=== PATIENT | male | born 1950 | race Caucasian/White ===

== ENCOUNTER 2017-04-03 02:13 | Inpatient (IN) | payer MEDICARE, OTHER ==
[~2017-04-03] VITALS: Ht 185.4 cm; Wt 117.5 kg
[~2017-04-03 02:13] MED LIST: CLOZAPINE25 MG PO; COZAAR50 MG ORAL; CYMBALTA30 MG ORAL; DEPAKOTE500 MG PO; DOCUSATE SODIU250 MG ORAL; DUONEB 0.5-3(2.53 ML HHN; GLUCOPHAGE1000 MG ORAL; LEVAQUIN750 MG ORAL; LOPRESSOR25 M1 ORAL; MEDROL4 MG ORAL; MOM30 ML ORAL; PEPCID20 MG ORAL; RISPERDAL2 MG ORAL; SIMVASTATIN20 MG ORAL
[2017-04-03] MEDS ORDERED: Morphine Sulfate 2mg/ml Inj IVP PRN (06:30)
[2017-04-03] MEDS ORDERED: Nitroglycerin Subl 0.4mg tab SL PRN (06:30)
[2017-04-03] MEDS ORDERED: Promethazine/Codeine 5ml UD ORAL PRN (06:30)
[2017-04-03] MEDS ORDERED: LORazepam Inj 2mg/ml 1ml IV PRN (06:30)
[2017-04-03 08:00] VITALS: BP 129/86
[2017-04-03] MEDS: Theophylline ER 100mg ORAL SCH ×2 (08:23→21:00)
[2017-04-03] MEDS: NovoLOG Insulin Flexpen SUBQ SCH ×4 (08:38→21:05)
--- NOTE | 2017-04-03 08:44 | General Progress Note ---
Progress Note Progress Note pt seen and examined full note will be dictated shortly JESSICA PALACIOS Apr 03, 2017 08:44
--- NOTE | 2017-04-03 08:47 | Cardiology Progress Note ---
Assessment/Plan Assessment/Plan The patient is seen and examined, full consult note will be dictated. Objective Last 24 Hour Vital Signs Date Time Temp Pulse Resp B/P (MAP) Pulse Ox O2 Delivery O2 Flow Rate FiO2 04/03/17 08:00 97.2 104 18 129/86 94 04/03/17 04:00 99 MARIAH STAPLETON Apr 03, 2017 08:47
[2017-04-03] MEDS ORDERED: DULoxetine 30mg cap ORAL SCH (09:00)
[2017-04-03] MEDS: Albuterol/Ipratropium 3ml neb HHN PRN ×2 (09:43→16:20)
--- NOTE | 2017-04-03 09:48 | Diagnostic Imaging Report ---
Indication: Shortness of breath Technique: One view of the chest Comparison: 09/18/2015 Findings: Body habitus limits evaluation. Heart is borderline enlarged. The lungs and pleural spaces are grossly clear. Impression: Borderline cardiomegaly No definite acute process
[2017-04-03] MEDS: Solu-MEDROL 125mg Inj IV SCH ×3 (11:42→23:33)
[2017-04-03 11:59] LABS: HEMOGLOBIN 13.8 G/DL (14.2-18.0); MEAN CORPUSCULAR VOLUME 87 FL (80-99); PLATELET COUNT 339 K/UL (150-450); RED CELL DISTRIBUTION WIDTH 12.1 % (11.6-14.8); WHITE BLOOD COUNT 8.5 K/UL (4.8-10.8)
[2017-04-03 12:00] VITALS: BP 144/66
[2017-04-03 12:17] LABS: PHOSPHORUS 3.4 MG/DL (2.5-4.9)
--- NOTE | 2017-04-03 15:07 | Consultation ---
History of Present Illness General Date patient seen: Apr 03, 2017 Time patient seen: 13:30 Chief Complaint: dyspnea Referring physician: dr Plascencia Reason for Consultation: COPD exacerbation Present Illness HPI 66 y/old male with PMH of COPD, HTN, HLD, PATRICIA, schizophrenia, DM type 2, was c/ o SOB x 1 [facility] Patient initially was brought to [place] ED for evaluation and was diagnosed with COPD exacerbation he was subsequently transferred [place] [facility] [place] Patient admits to chest tightness, occasional wheezing, SOB, dry cough Patient is a smoker 1/2-1 pk a day No hemoptysis, No chest pain No fever, no chills this am Na-127 Mg-1.7 CXR with CM but no acute CP pathology Allergies: Coded Allergies: No Known Allergies (Verified Allergy, Unknown, 09/29/08) Medication History Scheduled Clozapine (Clozapine), 75 MG PO QHS, (Reported) Divalproex Sodium (Depakote), 1,000 MG PO QHS, (Reported) Docusate Sodium* (Docusate Sodium*), 250 MG ORAL DAILY, (Reported) Duloxetine Hcl* (Cymbalta*), 30 MG ORAL DAILY, (Reported) Famotidine (Pepcid), 20 MG ORAL ACBREAKFAST, (Reported) Ipratropium/Albuterol Sulfate (DuoNeb 0.5-3(2.5)mg/3ml), 3 ML HHN Q8HR, ( Reported) Levofloxacin* (Levaquin*), 750 MG ORAL DAILY Levofloxacin* (Levaquin*), 500 MG ORAL DAILY Losartan Potassium* (Cozaar*), 50 MG ORAL TWICE A DAY, (Reported) Metformin Hcl (Glucophage), 500 MG ORAL BID, (Reported) Methylprednisolone* (Medrol*), 4 MG ORAL DAILY Metoprolol Tartrate (Metoprolol Tartrate), 12.5 MG ORAL BID, (Reported) Prednisone* (Prednisone*), 40 MG ORAL DAILY Risperidone* (Risperdal*), 2 MG ORAL BID, (Reported) Risperidone* (Risperdal*), 4 MG ORAL BEDTIME Simvastatin (Zocor), 20 MG ORAL BEDTIME, (Reported) Scheduled PRN Magnesium Hydroxide (Milk of Magnesia), 30 ML ORAL DAILY PRN for Constipation, ( Reported) Patient History Healthcare decision maker Resuscitation status Full Code Advanced Directive on File Review of Systems Constitutional: Reports: no symptoms Eye: Reports: no symptoms ENT: Reports: no symptoms Respiratory: Reports: see HPI Cardiovascular: Reports: other - HTN, HLD Genitourinary: Reports: no symptoms Musculoskeletal: Reports: no symptoms Skin: Reports: no symptoms Psychiatric: Reports: other - schizophrebnia Neurological: Reports: no symptoms Endocrine: Reports: other - DM type 2 Hematologic/Lymphatic: Reports: no symptoms Physical Exam General Appearance: no apparent distress, alert, other - obese with flat affect awake, alert, responsive male in NAD Lines, tubes and drains: peripheral HEENT: normocephalic, atraumatic, anicteric Neck: non-tender, supple Respiratory/Chest: decreased breath sounds Cardiovascular/Chest: normal rate, regular rhythm - SR with PVC Abdomen: normal bowel sounds, non tender - obese , soft Neurologic: no motor/sensory deficits, alert, responsive Musculoskeletal: normal muscle bulk Last 24 Hour Vital Signs Date Time Temp Pulse Resp B/P (MAP) Pulse Ox O2 Delivery O2 Flow Rate FiO2 04/03/17 09:45 75 18 96 Nasal Cannula 3.0 32 04/03/17 09:45 32 04/03/17 08:00 97.2 104 18 129/86 94 04/03/17 04:00 99 Laboratory Tests Test 04/03/17 10:45 White Blood Count 8.5 K/UL (4.8-10.8) Red Blood Count 4.60 M/UL (4.70-6.10) L Hemoglobin 13.8 G/DL (14.2-18.0) L Hematocrit 40.0 % (42.0-52.0) L Mean Corpuscular Volume 87 FL (80-99) Mean Corpuscular Hemoglobin 29.9 PG (27.0-31.0) Mean Corpuscular Hemoglobin Concent 34.3 G/DL (32.0-36.0) Red Cell Distribution Width 12.1 % (11.6-14.8) Platelet Count 339 K/UL (150-450) Mean Platelet Volume 7.1 FL (6.5-10.1) Neutrophils (%) (Auto) % (45.0-75.0) Lymphocytes (%) (Auto) % (20.0-45.0) Monocytes (%) (Auto) % (1.0-10.0) Eosinophils (%) (Auto) % (0.0-3.0) Basophils (%) (Auto) % (0.0-2.0) Differential Total Cells Counted 100 Neutrophils % (Manual) 87 % (45-75) H Lymphocytes % (Manual) 10 % (20-45) L Monocytes % (Manual) 3 % (1-10) Eosinophils % (Manual) 0 % (0-3) Basophils % (Manual) 0 % (0-2) Band Neutrophils 0 % (0-8) Platelet Estimate Adequate Platelet Morphology Normal Red Blood Cell Morphology Normal Phosphorus Level 3.4 MG/DL (2.5-4.9) Magnesium Level 1.7 MG/DL (1.8-2.4) L Height (Feet): 6 Height (Inches): 1.00 Weight (Pounds): 259 Medications Current Medications Medications (Trade) Dose Ordered Sig/Luly Route PRN Reason Start Time Stop Time Status Last Admin Dose Admin Acetaminophen (Tylenol) 650 mg Q4H PRN ORAL fever 04/03/17 06:30 05/03/17 06:29 Albuterol/ Ipratropium (Albuterol/ Ipratropium) 3 ml EVERY 4 HOURS PRN HHN dyspnea 04/03/17 06:30 04/08/17 06:29 04/03/17 09:43 Clonidine HCl (Catapres Tab) 0.1 mg EVERY 4 HOURS PRN ORAL sbp more than 160 04/03/17 06:30 05/03/17 06:29 Clozapine (Clozaril) 75 mg QHS ORAL 04/03/17 21:00 04/10/17 20:59 UNV Dextrose (Dextrose 50%) STAT PRN IV Hypoglycemia 04/03/17 06:30 05/03/17 06:29 Divalproex Sodium (Depakote) 1,000 mg QHS ORAL 04/03/17 21:00 05/03/17 20:59 Duloxetine HCl (Cymbalta) 30 mg DAILY ORAL 04/03/17 09:00 05/03/17 08:59 04/03/17 08:23 Famotidine (Pepcid) 20 mg ACBREAKFAST ORAL 04/03/17 06:30 05/03/17 06:29 04/03/17 08:26 Heparin Sodium (Porcine) (Heparin 5000 units/ml) 5,000 units EVERY 12 HOURS SUBQ 04/03/17 21:00 05/03/17 20:59 Insulin Aspart (NovoLOG) BEFORE MEALS AND HS SUBQ 04/03/17 06:30 05/03/17 06:29 04/03/17 11:40 Lorazepam (Ativan 2mg/ml 1ml) 0.5 mg Q4H PRN IV For Anxiety 04/03/17 06:30 04/10/17 06:29 Magnesium Sulfate 100 ml @ 100 mls/hr ONCE ONCE IVPB 04/03/17 16:00 04/03/17 16:59 Methylprednisolone Sodium Succinate (Solu-MEDROL) 60 mg EVERY 6 HOURS IV 04/03/17 12:00 05/03/17 11:59 04/03/17 11:42 Morphine Sulfate (Morphine Sulfate) 2 mg EVERY 4 HOURS PRN IVP severe pain 7-10 04/03/17 06:30 04/10/17 06:29 Nitroglycerin (Ntg) 0.4 mg Q5M X 3 DOSES PRN SL Prn Chest Pain 04/03/17 06:30 05/03/17 06:29 Ondansetron HCl (Zofran) 4 mg Q6H PRN IVP Nausea & Vomiting 04/03/17 06:30 05/03/17 06:29 Promethazine HCl/ Codeine (Phenergan with Codeine) 5 ml EVERY 6 HOURS PRN ORAL cough 04/03/17 06:30 05/03/17 06:29 Risperidone (RisperDAL) 4 mg BEDTIME ORAL 04/03/17 21:00 05/03/17 08:59 Temazepam (Restoril) 15 mg HSPRN PRN ORAL Insomnia 04/03/17 06:30 04/10/17 06:29 Theophylline (Sd-Dur) 100 mg EVERY 12 HOURS ORAL 04/03/17 09:00 05/03/17 08:59 04/03/17 08:23 Assessment/Plan Assessment/Plan ASSESSMENT respiratory failure acute COPD exacerbation tobacco dependence with withdrawal PATRICIA hypoNa DM schizophrenia HTN spinal stenosis obesity PLAN OF CARE tele O2 titrate HHN ATC and prn IV steroids trial of theophylline sputum cx if able empiric abx fup with CXR a/tussive prn add Nicotine patch BiPAP a HS and prn DVT GI prophylaxis IVF with NS x 1 L , check Na in am replace Mg pain management PT eval and Rx BS management with SS of insulin, check Hgba1c BP management with current regimen psych meds resume, consider psych eval- per PMD discretion transfer to [facility] floor case discussed and evaluated by supervising physician Garry (Araceli),Bernice DUNNE Apr 03, 2017 15:07
[2017-04-03 16:00] VITALS: BP 139/69
[2017-04-03] MEDS ORDERED: Levofloxacin 500mg tab ORAL SCH (16:00)
[2017-04-03 16:01] LABS: ANION GAP 9 mmol/L (5-15); BLOOD UREA NITROGEN 14 mg/dL (7-18); CALCIUM 9.5 MG/DL (8.5-10.1); CARBON DIOXIDE 28 MMOL/L (21-32); CHLORIDE 91 MMOL/L (98-107); CREATININE 0.6 MG/DL (0.55-1.30); POTASSIUM 4.5 MMOL/L (3.5-5.1); SODIUM 127 MMOL/L (136-145)
--- NOTE | 2017-04-03 16:18 | History & Physical ---
History and Physical History & Physicial Dictated for Int Med-Dr Plascencia no. [id number]. GORGE RODAS Apr 03, 2017 16:18
--- NOTE | 2017-04-03 17:15 | Consultation ---
DATE OF CONSULTATION: 04/03/2017 HISTORY OF PRESENT ILLNESS: This is a 66-year-old male with a history of multiple medical problems including chronic obstructive pulmonary disease, hypertension, diabetes mellitus type 2, schizophrenia, and chronic obstructive pulmonary disease, who has been admitted to the hospital for medical stabilization. The patient presented with anxiety, agitation, and it was difficult to redirect. During the evaluation, the patient is slightly dysarthric and is having difficulty to answer questions due to being confused. He knew he was in the hospital, however, was unable to provide any history. PAST PSYCHIATRIC HISTORY: He has been treated with risperidone, temazepam, Ativan, and Depakote. PAST MEDICAL HISTORY: Includes chronic obstructive pulmonary disease, cardiomegaly, diabetes mellitus, hypercholesterolemia, respiratory failure, wheezing, hypertension, sleep apnea, schizophrenia, and chronic obstructive pulmonary disease. ALLERGIES: No known drug allergies. SUBSTANCE ABUSE HISTORY: No known history of illicit drug use or alcohol. MENTAL STATUS EXAMINATION: The patient is alert, oriented to self and place, is obese, and somewhat uncooperative. Mood is anxious. Affect is agitated. Affect is blunted. Congruent with mood. Thought process is disorganized. Thought content, no suicidal or homicidal ideations. Cognition is impaired. Insight and judgment non-existent. ASSESSMENT: [place] I Schizophrenia by history and encephalopathy. [place] II Deferred. [place] III Chronic obstructive pulmonary disease. [place] IV Low. [place] V Global assessment of functioning is 20. PLAN: 1. We will change the risperidone to 4 mg p.o. at bedtime. 2. We will continue the Ativan. 3. Continue Clozaril 75 mg at bedtime. 4. We will continue to follow and readjust the medications. Ayad Adhikari M.D. DR: CHAVEZ JOB#: [id number] CC:
[2017-04-03] MEDS ORDERED: Albuterol/Ipratropium 3ml neb HHN SCH (19:00)
[2017-04-03 20:00] VITALS: BP 145/85
--- NOTE | 2017-04-03 20:30 | History and Physical Report ---
DATE OF ADMISSION: 04/03/2017 CHIEF COMPLAINT: The patient is a 66-year-old white male, presents with complaint of shortness of breath. HISTORY OF PRESENT ILLNESS: The patient is a resident of [facility]. According to staff at [facility], the patient became short of breath yesterday 04/02/2017. The patient initially presented to [facility] emergency room. The patient was diagnosed with chronic obstructive pulmonary disease acute exacerbation. The patient was transferred to [facility] for insurance purposes. The patient is admitted for shortness of breath and chronic obstructive pulmonary disease acute exacerbation. REVIEW OF SYSTEMS: CONSTITUTIONAL: The patient denies weight loss or weight gain. The patient denies fevers or chills. HEENT: The patient denies ear or throat pain. The patient denies headache. CARDIOVASCULAR: The patient denies palpitations or chest pain. CHEST: The patient complains of shortness of breath as above. The patient complains of wheezing. ABDOMEN: The patient denies nausea, vomiting, diarrhea, or constipation. GENITOURINARY: The patient denies dysuria or increased frequency of urination. NEUROMUSCULAR: The patient denies seizures or generalized weakness. PAST MEDICAL HISTORY: Significant for: 1. Chronic obstructive pulmonary disease. 2. Hypertension. 3. Hypercholesterolemia. 4. Diabetes type 2. 5. Schizophrenia. 6. Obstructive sleep apnea. PAST SURGICAL HISTORY: Unknown. CURRENT MEDICATIONS: 1. Clozapine 75 mg p.o. at bedtime. 2. Depakote 1000 mg p.o. at bedtime. 3. Cymbalta 30 mg p.o. daily. 4. Pepcid 20 mg p.o. daily. 5. DuoNeb nebulized q.8 h. p.r.n. 6. Losartan 50 mg p.o. twice daily. 7. Metformin 500 mg p.o. twice daily. 8. Medrol 4 mg p.o. daily. 9. Metoprolol 12.5 mg p.o. twice daily. 10. Risperdal 2 mg p.o. twice daily. 11. Simvastatin 20 mg p.o. at bedtime. ALLERGIES: No known drug allergies. SOCIAL HISTORY: The patient is single and is disabled. The patient denies tobacco use, having quit a few years ago. The patient denies alcohol use. PHYSICAL EXAMINATION: VITAL SIGNS: Temperature 97.2, respirations 18, pulse 104, blood pressure 129/86, and oxygen saturation 94% to 96% on three liters nasal cannula. GENERAL: The patient is well-developed, well-nourished obese white male, in no apparent distress. HEENT: Eyes, pupils are equal and responsive to light and accommodation. Extraocular movements are intact. NECK: Supple without lymphadenopathy. CHEST: Few diffuse wheezes bilateral bases, otherwise clear to auscultation bilaterally without wheezes or rales. CARDIOVASCULAR: Regular rate. S1, S2 normal without murmurs, rubs, or gallops. ABDOMEN: Soft, nontender, and nondistended. Positive bowel sounds. No evidence of hepatosplenomegaly. Currently, no rebound or guarding noted. EXTREMITIES: Negative for clubbing, cyanosis, or edema. RECTAL/GENITAL: Refused. NEUROLOGICAL: Cranial nerves II through XII are grossly intact without focal deficits. Motor strength is 5/5 bilaterally. Deep tendon reflexes are 2+ plantar. LABORATORY AND DIAGNOSTIC DATA: Laboratory studies, WBC 8.5, hemoglobin 13.8, hematocrit 40.0, and platelets 339,000. Sodium and potassium are pending. Chest x-ray at [facility] was reported as cardiomegaly with no acute infiltrates or disease. Electrolytes from [facility], sodium 126, potassium 3.9, chloride 88, CO2 29, BUN 12, creatinine 0.64, and glucose 117. Troponin less than 0.02. ASSESSMENT: This is a 56-year-old white male with: 1. Shortness of breath. 2. Chronic obstructive pulmonary disease exacerbation. 3. Hyponatremia. 4. Hypertension. 5. Hypercholesteremia. 6. Diabetes type 2. 7. Schizophrenia. TREATMENT: 1. Shortness of breath/chronic obstructive pulmonary disease, acute exacerbation. A Pulmonary consultation hs been obtained with Dr. Duarte Palm. The patient has been started empirically on DuoNebs nebulized q.8 hours routine. The patient has also been started on Solu-Medrol 60 mg intravenous every six hours. We will follow recommendations of Pulmonary. 2. Hyponatremia. The patient is currently receiving normal saline intravenous fluids. 3. Hypertension. Continue losartan as above. 4. Hypercholesteremia. Continue simvastatin as above. 5. Diabetes type 2. The patient has been started on a NovoLog sliding scale. 6. Schizophrenia. A psychiatric consultation is pending with Dr. Adhikari. Checo Griffith M.D. DR: NAIN JOB#: [id number] CC:
[2017-04-03] MEDS ORDERED: Depakote 500mg tab ORAL SCH (21:00)
[2017-04-03] MEDS ORDERED: Heparin 5000 units/ml inj SUBQ SCH (21:00)
--- NOTE | 2017-04-03 21:30 | Consultation ---
DATE OF CONSULTATION: 04/03/2017 NEPHROLOGY CONSULTATION CONSULTING PHYSICIAN: Yessica Guo M.D. REFERRING PHYSICIAN: Jamil Placsencia M.D. REASON FOR CONSULTATION: Chronic obstructive pulmonary disease versus congestive heart failure exacerbation, hypomagnesemia, and electrolyte imbalance. HISTORY OF PRESENT ILLNESS: The patient is an unfortunate 66-year-old male with past medical history significant for history of hypertension, morbid obesity, history of diabetes, history of dyslipidemia, and history of schizophrenia, who was presented to [facility] with increased shortness of breath. The patient was diagnosed with chronic obstructive pulmonary disease exacerbation and consequently transferred to [facility]. I was called for management of renal disease and electrolyte imbalance. HOME MEDICATIONS: Includin. Clozapine 75 mg p.o. daily. 2. Depakote 1000 mg at bedtime. 3. Colace 100 mg p.o. daily. 4. Cymbalta 30 mg p.o. daily. 5. Pepcid 20 mg p.o. daily. 6. Albuterol and Atrovent as needed shortness of breath. 7. Levaquin 750 mg daily. 8. Cozaar 50 mg p.o. daily. 9. Glucophage 500 mg p.o. daily. 10. Medrol pack. 11. Metoprolol 12.5 mg daily. 12. Risperdal 2 mg twice a day. 13. Simvastatin 20 mg at bedtime. PAST MEDICAL HISTORY: Includin. Hypertension. 2. Dyslipidemia. 3. Morbid obesity. 4. History of chronic tobacco use. 5. History of chronic obstructive pulmonary disease. 6. History of schizophrenia. FAMILY HISTORY: Noncontributory. PAST SURGICAL HISTORY: The patient denies any surgical history. REVIEW OF SYSTEMS: GENERAL: The patient complained of generalized weakness. Denies any fever, chills, or night sweats. HEAD AND NECK: Denies any dysphagia, odynophagia, blurry vision, headache, or neck stiffness. PULMONARY: Complained of wheezing, cough, and yellow sputum. CARDIOVASCULAR: Complained of chest tightness. Denies any chest compression or palpitations. GASTROINTESTINAL: Denies any nausea, vomiting, diarrhea, hematemesis, or hematochezia. GENITOURINARY: Denies any dysuria, frequency, or hematuria. MUSCULOSKELETAL: Denies any weakness or numbness. PHYSICAL EXAMINATION: VITAL SIGNS: The patient had temperature of 97 degrees, blood pressure 129/86, and respiratory rate of 18. HEAD AND NECK: No JVP. No LAD. No thyromegaly. Extraocular movements are intact. Pupils are reactive to light and accommodation. LUNGS: He has bilateral wheezing. Decreased air movement. CARDIAC: Regular rate and rhythm. S1 and S2. No murmur. No rub. ABDOMEN: Soft, nontender, obese, and nondistended. EXTREMITIES: Trace edema. No clubbing. No cyanosis. LABORATORY DATA: The patient had a WBC count of 8.5, hemoglobin of 13.8, hematocrit of 40, and platelet count of 339. Chemistry is pending for today. Magnesium was 1.7. Phosphorus is 3.4. There is no urinalysis. ASSESSMENT: 1. Hypomagnesemia. 2. Possible fluid overload, unlikely to be based on the patient's examination. 3. Hypertension, well controlled. 4. Morbid obesity. 5. Dyslipidemia. PLAN: Plan for the patient to obtain a UA. Check the stat chemistries. Replace the magnesium. Replace electrolytes as needed. Avoid any further nephrotoxics. Check the intakes and outputs and daily weights. Again, I would like to thank, Dr. Plascencia, for allowing me to participate in the care of this patient. Yessica Guo M.D. DR: HIRO JOB#: [id number] CC:
--- NOTE | 2017-04-03 21:30 | Consultation ---
DATE OF CONSULTATION: 04/03/2017 NOTE: INCOMPLETE DICTATION CARDIOLOGY CONSULTATION CONSULTING PHYSICIAN: Frandy Leslie M.D. REFERRING PHYSICIAN: Jamil Plascencia M.D. REASON FOR CONSULTATION: Shortness of breath and wheezing. Frandy Leslie M.D. DR: Gianluca JOB#: [id number] CC:
--- NOTE | 2017-04-03 22:30 | Consultation ---
DATE OF CONSULTATION: 04/03/2017 CARDIOLOGY CONSULTATION CONSULTING PHYSICIAN: Frandy Leslie M.D. REFERRING PHYSICIAN: Jamil Plascencia M.D. REASON FOR CONSULTATION: Management of shortness of breath and wheezing. HISTORY OF PRESENT ILLNESS: The patient is a very unfortunate 66-year-old gentleman, who was transferred from [facility] for evaluation and management of dyspnea. Apparently, the patient was admitted to that facility with shortness of breath and was found to have acute exacerbation of COPD. He was then transferred to this facility for further evaluation and management, and the patient had low O2 saturation in the emergency department. At the time of arrival to this facility, the patient was stable. At the bedside, the patient does not have any complaints of shortness of breath, however, he is wheezing. He denies any chest pain. PAST MEDICAL HISTORY: COPD, hypertension, morbid obesity, dyslipidemia, spinal stenosis, diabetes mellitus type 2, schizophrenia, history of pneumonia, and history of obstructive sleep apnea. MEDICATIONS AT THE FACILITY: DuoNeb every four hours as needed, Advair 100/50 mg one inhalation twice daily, Lopressor 25 mg half a tablet twice a day, Catapres 0.1 mg three times a day as needed for systolic blood pressure above 160, hydrochlorothiazide 25 mg half a tablet daily, Lipitor 20 mg p.o. at bedtime, Pepcid 20 mg p.o. daily, Cozaar 50 mg twice daily, clozapine 100 mg at bedtime, Depakote 1000 mg at night time, Risperdal 3 mg three times a day, and Zoloft 100 mg p.o. daily. ALLERGIES: No known drug allergies. SOCIAL HISTORY: He is a resident of residential facility. Smokes about one cigarette per day, has been smoking for the past 30 years. Denies any alcohol or illicit drug use. FAMILY HISTORY: No premature coronary artery disease in the first-degree relatives. REVIEW OF SYSTEMS: HEENT: Denies any headache, diplopia, or blurred vision. CONSTITUTIONAL: Denies any fever, chills, night sweats, or weight loss. CARDIOVASCULAR: Denies any chest pain. He had shortness of breath at the time of arrival to [facility]. Denies any PND, orthopnea or leg swelling. PULMONARY: Denies any hemoptysis, but has got shortness of breath and wheezing and cough. GASTROINTESTINAL: Denies any nausea, vomiting, diarrhea, constipation, abdominal pain, or GI bleed. GENITOURINARY: Denies any hematuria, dysuria, or incontinence. NEUROLOGY: Denies any motor dysfunction, sensory deficit, or altered speech. PHYSICAL EXAMINATION: GENERAL: The patient is a very pleasant 56-year-old gentleman, in no apparent respiratory distress. VITAL SIGNS: Blood pressure at time of arrival to the hospital was 129/86, heart rate of 104, respirations of 18, temperature 97.3 degrees Fahrenheit, and O2 saturation 94% on room air. HEENT: Atraumatic and normocephalic. ENT, pupils are equal, round, and reactive to light and accommodation. Extraocular muscles intact. NECK: JVP less than 5 cm. No carotid bruit. Carotid upstrokes 2+ bilaterally. CARDIOVASCULAR: Normal S1 and S2. Regular rate and rhythm. Tachycardic. No murmurs, gallops, or rubs. PMI is at fourth intercostal space at the midclavicular line. LUNGS: Diminished breath sounds in both lungs with associated rhonchi in both lungs. No crackles. ABDOMEN: Soft, nontender, and nondistended. No hepatosplenomegaly. Positive bowel sounds. EXTREMITIES: No evidence of edema, clubbing, or cyanosis. LABORATORY AND DIAGNOSTIC DATA: WBC is 8.5, hemoglobin 13.8, hematocrit 40.0, and platelet count is 339. Sodium was 127, potassium is 4.5, chloride of 91, bicarbonate 28, BUN of 14, creatinine of 0.6, and glucose was 126 and calcium of 9.5. Magnesium is 1.7. Chest x-ray showed no acute cardiopulmonary disease with borderline cardiomegaly. ASSESSMENT AND PLAN: The patient is a very unfortunate 66-year-old gentleman, who is seen in Cardiology consultation for management of dyspnea from Cardiology standpoint. 1. Dyspnea in this patient is most likely due to acute exacerbation of chronic obstructive pulmonary disease. We would like to obtain 2D echocardiography for assessment of right atrial and ventricular cavity size as well as pulmonary hypertension. I expect pulmonary hypertension to some degree, as he has obstructive sleep apnea as well and chronic obstructive pulmonary disease. Further therapeutic and diagnostic decision will be based on the results of the above study. 2. History of psychiatric disorder. 3. Low magnesium level, 1 g of magnesium sulfate is being given. 4. History of hypertension. We will continue the patient on losartan and metoprolol. 5. History of diabetes mellitus. Aspirin and statin on a long-term basis. 6. The patient is already on simvastatin 20 mg daily. I would like to thank Dr. Plascencia for the courtesy of this consultation. Frandy Leslie M.D. DR: RONNY JOB#: [id number] CC:
[2017-04-04] VITALS (7 sets, daily range): BP systolic 129–153; BP diastolic 62–87
[2017-04-04] MEDS ORDERED: Nitroglycerin Subl 0.4mg tab SL PRN (02:30)
[2017-04-04] MEDS ORDERED: LORazepam Inj 2mg/ml 1ml IV PRN (02:30)
[2017-04-04] MEDS ORDERED: Albuterol/Ipratropium 3ml neb HHN PRN (03:07)
[2017-04-04] MEDS ORDERED: Morphine Sulfate 2mg/ml Inj IVP PRN (03:08)
[2017-04-04] MEDS ORDERED: Promethazine/Codeine 5ml UD ORAL PRN (03:09)
[2017-04-04] MEDS: Solu-MEDROL 125mg Inj IV SCH ×2 (06:13→12:08)
[2017-04-04] MEDS: NovoLOG Insulin Flexpen SUBQ SCH ×4 (06:16→21:49)
[2017-04-04] MEDS: Albuterol/Ipratropium 3ml neb HHN SCH ×3 (07:55→20:06)
[2017-04-04] MEDS: Theophylline ER 100mg ORAL SCH ×2 (09:08→21:44)
[2017-04-04] MEDS: Levofloxacin 500mg tab ORAL SCH (09:08)
[2017-04-04] MEDS: DULoxetine 30mg cap ORAL SCH (09:09)
[2017-04-04] MEDS: Heparin 5000 units/ml inj SUBQ SCH ×2 (09:09→21:46)
[2017-04-04 10:39] LABS: HEMATOCRIT 40.8 % (42.0-52.0); HEMOGLOBIN 14.2 G/DL (14.2-18.0); MEAN CORPUSCULAR VOLUME 88 FL (80-99); PLATELET COUNT 303 K/UL (150-450); RED BLOOD COUNT 4.64 M/UL (4.70-6.10); RED CELL DISTRIBUTION WIDTH 12.6 % (11.6-14.8); WHITE BLOOD COUNT 12.7 K/UL (4.8-10.8)
[2017-04-04 11:07] LABS: ALANINE AMINOTRANSFERASE 36 U/L (12-78); ALBUMIN 3.4 G/DL (3.4-5.0); ALBUMIN/GLOBULIN RATIO 0.9 (1.0-2.7); ALKALINE PHOSPHATASE 86 U/L (46-116); ANION GAP 11 mmol/L (5-15); ASPARTATE AMINO TRANSFERASE 15 U/L (15-37); BILIRUBIN,TOTAL 0.2 MG/DL (0.2-1.0); BLOOD UREA NITROGEN 18 mg/dL (7-18); CALCIUM 9.4 MG/DL (8.5-10.1); CARBON DIOXIDE 29 MMOL/L (21-32); CHLORIDE 94 MMOL/L (98-107); CREATININE 0.7 MG/DL (0.55-1.30); POTASSIUM 3.9 MMOL/L (3.5-5.1); SODIUM 133 MMOL/L (136-145)
--- NOTE | 2017-04-04 15:02 | Pulmonology Progress Note ---
Assessment/Plan Problems: (1) Respiratory failure (2) COPD exacerbation (3) Obstructive sleep apnea (4) Dyspnea (5) HTN (hypertension) (6) Schizophrenia (7) Diabetes mellitus Assessment/Plan improving respiratory treatment pater steroids titrate fio2 psychiatry to se sliding scale dvt prophylaxis. Subjective ROS Limited/Unobtainable: No Constitutional: Reports: no symptoms HEENT: Repors: no symptoms Respiratory: Reports: no symptoms Allergies: Coded Allergies: No Known Allergies (Verified Allergy, Unknown, 09/29/08) Objective Last 24 Hour Vital Signs Date Time Temp Pulse Resp B/P (MAP) Pulse Ox O2 Delivery O2 Flow Rate FiO2 04/04/17 13:05 96 20 97 Room Air 04/04/17 13:00 95 20 93 Room Air 04/04/17 12:01 98.4 97 21 136/73 97 98.4 04/04/17 07:38 97.9 95 19 153/83 92 97.9 04/04/17 07:31 97 20 96 Room Air 04/04/17 07:31 96 Room Air 04/04/17 07:31 Room Air 04/04/17 07:26 90 20 92 Room Air 04/04/17 04:00 97.3 87 20 131/85 97 97.3 04/04/17 03:00 70 16 98 Facial 30 04/04/17 02:15 97.1 79 20 133/78 94 97.1 04/04/17 01:00 73 17 97 Facial 30 04/04/17 00:00 96.4 93 18 129/62 96 Nasal Cannula 2.0 96.4 04/03/17 20:57 92 20 Nasal Cannula 2.0 28 04/03/17 20:00 92 20 95 Nasal Cannula 3.0 32 04/03/17 20:00 98.2 90 20 145/85 94 Nasal Cannula 2.0 98.2 04/03/17 20:00 93 Nasal Cannula 2.0 28 04/03/17 20:00 98 20 98 Nasal Cannula 3.0 32 04/03/17 20:00 Nasal Cannula 2.0 28 04/03/17 20:00 90 04/03/17 19:30 92 20 Nasal Cannula 2.0 28 04/03/17 16:27 78 18 96 Nasal Cannula 3.0 32 04/03/17 16:20 78 18 94 Nasal Cannula 3.0 32 04/03/17 16:20 32 04/03/17 16:00 101 04/03/17 16:00 97.0 102 18 139/69 94 97.0 Intake and Output 04/03/17 04/04/17 19:00 07:00 Intake Total 720 ml 300 ml Output Total 450 ml 600 ml Balance 270 ml -300 ml Intake Oral 720 ml IV Total 300 ml Output Urine Total 450 ml 600 ml # Voids 2 Objective General Appearance: no apparent distress, alert, other - obese with flat affect awake, alert, responsive male in NAD Lines, tubes and drains: peripheral HEENT: normocephalic, atraumatic, anicteric Neck: non-tender, supple Respiratory/Chest: decreased breath sounds Cardiovascular/Chest: normal rate, regular rhythm - SR with PVC Abdomen: normal bowel sounds, non tender - obese , soft Neurologic: no motor/sensory deficits, alert, responsive Musculoskeletal: normal muscle bulk Laboratory Tests 04/03/17 16:00: Urine Eosinophils None seen, Urine Random Creatinine [Pending], Urine Random Microalbumin [Pending], Urine Random Total Protein 204H, Urine Random Sodium 40 , Urine Creatinine 41.9, Urine Microalbumin/Creatinine Ratio [Pending] 04/04/17 10:14: White Blood Count 12.7H, Red Blood Count 4.64L, Hemoglobin 14.2, Hematocrit 40.8L, Mean Corpuscular Volume 88, Mean Corpuscular Hemoglobin 30.5, Mean Corpuscular Hemoglobin Concent 34.7, Red Cell Distribution Width 12.6, Platelet Count 303, Mean Platelet Volume 7.7, Neutrophils (%) (Auto) , Lymphocytes (%) ( Auto) , Monocytes (%) (Auto) , Eosinophils (%) (Auto) , Basophils (%) (Auto) , Differential Total Cells Counted 100, Neutrophils % (Manual) 92H, Lymphocytes % (Manual) 3L, Monocytes % (Manual) 1, Eosinophils % (Manual) 0, Basophils % ( Manual) 0, Band Neutrophils 4, Platelet Estimate Adequate, Platelet Morphology Normal, Red Blood Cell Morphology Normal, Sodium Level 133L, Potassium Level 3.9 , Chloride Level 94L, Carbon Dioxide Level 29, Anion Gap 11, Blood Urea Nitrogen 18, Creatinine 0.7, Estimat Glomerular Filtration Rate > 60, Glucose Level 193H, Hemoglobin A1c 7.0H, Calcium Level 9.4, Total Bilirubin 0.2, Aspartate Amino Transf (AST/SGOT) 15, Alanine Aminotransferase (ALT/SGPT) 36, Alkaline Phosphatase 86, Total Protein 7.4, Albumin 3.4, Globulin 4.0, Albumin/ Globulin Ratio 0.9L Current Medications Medications (Trade) Dose Ordered Sig/Luly Route PRN Reason Start Time Stop Time Status Last Admin Dose Admin Acetaminophen (Tylenol) 650 mg Q4H PRN ORAL fever 04/04/17 02:30 05/03/17 06:29 Albuterol/ Ipratropium (Albuterol/ Ipratropium) 3 ml Q4H PRN HHN dyspnea 04/04/17 03:07 04/09/17 03:06 Albuterol/ Ipratropium (Albuterol/ Ipratropium) 3 ml TIDRT HHN 04/04/17 07:00 04/08/17 18:59 04/04/17 13:07 Clonidine HCl (Catapres Tab) 0.1 mg Q4H PRN ORAL sbp more than 160 04/04/17 03:05 05/04/17 03:04 Clozapine (Clozaril) 75 mg QHS ORAL 04/04/17 21:00 04/10/17 20:59 Dextrose (Dextrose 50%) STAT PRN IV Hypoglycemia 04/04/17 03:06 05/03/17 03:05 Divalproex Sodium (Depakote) 1,000 mg QHS ORAL 04/04/17 21:00 05/03/17 20:59 Duloxetine HCl (Cymbalta) 30 mg DAILY ORAL 04/04/17 09:00 05/03/17 08:59 04/04/17 09:09 Famotidine (Pepcid) 20 mg ACBREAKFAST ORAL 04/04/17 06:30 05/03/17 06:29 04/04/17 06:13 Heparin Sodium (Porcine) (Heparin 5000 units/ml) 5,000 units EVERY 12 HOURS SUBQ 04/04/17 09:00 05/03/17 20:59 04/04/17 09:09 Insulin Aspart (NovoLOG) BEFORE MEALS AND HS SUBQ 04/04/17 06:30 05/03/17 06:29 04/04/17 11:45 Levofloxacin (Levaquin) 500 mg DAILY ORAL 04/04/17 09:00 04/10/17 15:59 04/04/17 09:08 Lorazepam (Ativan 2mg/ml 1ml) 0.5 mg Q4H PRN IV For Anxiety 04/04/17 02:30 04/10/17 06:29 Methylprednisolone Sodium Succinate (Solu-MEDROL) 60 mg EVERY 6 HOURS IV 04/04/17 06:00 05/03/17 11:59 04/04/17 12:08 Morphine Sulfate (Morphine Sulfate) 2 mg Q4H PRN IVP severe pain 7-10 04/04/17 03:08 04/11/17 03:07 Nicotine (Nicoderm) 1 patch Q24H TDERMAL 04/04/17 16:00 05/03/17 15:59 Nitroglycerin (Ntg) 0.4 mg Q5M X 3 DOSES PRN SL Prn Chest Pain 04/04/17 02:30 05/03/17 06:29 Ondansetron HCl (Zofran) 4 mg Q6H PRN IVP Nausea & Vomiting 04/04/17 03:09 05/03/17 03:08 Promethazine HCl/ Codeine (Phenergan with Codeine) 5 ml Q6H PRN ORAL cough 04/04/17 03:09 05/04/17 03:08 Risperidone (RisperDAL) 4 mg BEDTIME ORAL 04/04/17 21:00 05/03/17 08:59 Sodium Chloride 1,000 ml @ 50 mls/hr Q20H IV 04/04/17 04:00 05/03/17 03:59 04/04/17 03:14 Temazepam (Restoril) 15 mg HSPRN PRN ORAL Insomnia 04/04/17 03:10 04/10/17 03:09 Theophylline (Sd-Dur) 100 mg EVERY 12 HOURS ORAL 04/04/17 09:00 05/03/17 08:59 04/04/17 09:08 CONRAD KRISHNA Apr 04, 2017 15:02
--- NOTE | 2017-04-04 16:30 | Internal Med Progress Note ---
Subjective Date of Service: Apr 04, 2017 Physician Name RodasGorge Attending Physician Jamil Plascencia MD Current Medications Medications (Trade) Dose Ordered Sig/Luly Route PRN Reason Start Time Stop Time Status Last Admin Dose Admin Acetaminophen (Tylenol) 650 mg Q4H PRN ORAL fever 04/04/17 02:30 05/03/17 06:29 Albuterol/ Ipratropium (Albuterol/ Ipratropium) 3 ml Q4H PRN HHN dyspnea 04/04/17 03:07 04/09/17 03:06 Albuterol/ Ipratropium (Albuterol/ Ipratropium) 3 ml TIDRT HHN 04/04/17 07:00 04/08/17 18:59 04/04/17 13:07 Clonidine HCl (Catapres Tab) 0.1 mg Q4H PRN ORAL sbp more than 160 04/04/17 03:05 05/04/17 03:04 Clozapine (Clozaril) 75 mg QHS ORAL 04/04/17 21:00 04/10/17 20:59 Dextrose (Dextrose 50%) STAT PRN IV Hypoglycemia 04/04/17 03:06 05/03/17 03:05 Divalproex Sodium (Depakote) 1,000 mg QHS ORAL 04/04/17 21:00 05/03/17 20:59 Duloxetine HCl (Cymbalta) 30 mg DAILY ORAL 04/04/17 09:00 05/03/17 08:59 04/04/17 09:09 Famotidine (Pepcid) 20 mg ACBREAKFAST ORAL 04/04/17 06:30 05/03/17 06:29 04/04/17 06:13 Heparin Sodium (Porcine) (Heparin 5000 units/ml) 5,000 units EVERY 12 HOURS SUBQ 04/04/17 09:00 05/03/17 20:59 04/04/17 09:09 Insulin Aspart (NovoLOG) BEFORE MEALS AND HS SUBQ 04/04/17 06:30 05/03/17 06:29 04/04/17 11:45 Levofloxacin (Levaquin) 500 mg DAILY ORAL 04/04/17 09:00 04/10/17 15:59 04/04/17 09:08 Lorazepam (Ativan 2mg/ml 1ml) 0.5 mg Q4H PRN IV For Anxiety 04/04/17 02:30 04/10/17 06:29 Methylprednisolone Sodium Succinate (Solu-MEDROL) 60 mg DAILY IV 04/05/17 09:00 05/03/17 11:59 Morphine Sulfate (Morphine Sulfate) 2 mg Q4H PRN IVP severe pain 7-10 04/04/17 03:08 04/11/17 03:07 Nicotine (Nicoderm) 1 patch Q24H TDERMAL 04/04/17 16:00 05/03/17 15:59 04/04/17 16:06 Nitroglycerin (Ntg) 0.4 mg Q5M X 3 DOSES PRN SL Prn Chest Pain 04/04/17 02:30 05/03/17 06:29 Ondansetron HCl (Zofran) 4 mg Q6H PRN IVP Nausea & Vomiting 04/04/17 03:09 05/03/17 03:08 Promethazine HCl/ Codeine (Phenergan with Codeine) 5 ml Q6H PRN ORAL cough 04/04/17 03:09 05/04/17 03:08 Risperidone (RisperDAL) 4 mg BEDTIME ORAL 04/04/17 21:00 05/03/17 08:59 Sodium Chloride 1,000 ml @ 50 mls/hr Q20H IV 04/04/17 04:00 05/03/17 03:59 04/04/17 03:14 Temazepam (Restoril) 15 mg HSPRN PRN ORAL Insomnia 04/04/17 03:10 04/10/17 03:09 Theophylline (Sd-Dur) 100 mg EVERY 12 HOURS ORAL 04/04/17 09:00 05/03/17 08:59 04/04/17 09:08 Allergies: Coded Allergies: No Known Allergies (Verified Allergy, Unknown, 09/29/08) ROS Limited/Unobtainable: No Constitutional: Reports: no symptoms HEENT: Reports: no symptoms Cardiovascular: Reports: no symptoms Respiratory: Reports: shortness of breath Gastrointestinal/Abdominal: Reports: no symptoms Genitourinary: Reports: no symptoms Neurologic/Psychiatric: Reports: no symptoms Subjective 66 YO M admitted with shortness of breath. Now COPD exacerbation. Cover for Int [facility]-Dr Plascencia. Objective Last Vital Signs Date Time Temp Pulse Resp B/P (MAP) Pulse Ox O2 Delivery O2 Flow Rate FiO2 04/04/17 15:58 98.2 82 20 137/79 94 98.2 04/04/17 13:05 Room Air 04/04/17 03:00 30 04/04/17 00:00 2.0 General Appearance: WD/WN, alert, mild distress EENT: PERRL/EOMI, normal ENT inspection Neck: non-tender, normal alignment, supple, normal inspection Cardiovascular: normal peripheral pulses, normal rate, regular rhythm, no gallop/murmur, no JVD Respiratory/Chest: respiratory distress, crackles/rales, rhonchi - bilaterally , expiratory wheezing Abdomen: normal bowel sounds, non tender, soft, no organomegaly, no mass Extremities: normal range of motion, non-tender 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 normal, no motor/sensory deficits Skin: normal pigmentation, warm/dry Laboratory Tests Test 04/04/17 10:14 White Blood Count 12.7 K/UL (4.8-10.8) H Red Blood Count 4.64 M/UL (4.70-6.10) L Hemoglobin 14.2 G/DL (14.2-18.0) Hematocrit 40.8 % (42.0-52.0) L Mean Corpuscular Volume 88 FL (80-99) Mean Corpuscular Hemoglobin 30.5 PG (27.0-31.0) Mean Corpuscular Hemoglobin Concent 34.7 G/DL (32.0-36.0) Red Cell Distribution Width 12.6 % (11.6-14.8) Platelet Count 303 K/UL (150-450) Mean Platelet Volume 7.7 FL (6.5-10.1) Neutrophils (%) (Auto) % (45.0-75.0) Lymphocytes (%) (Auto) % (20.0-45.0) Monocytes (%) (Auto) % (1.0-10.0) Eosinophils (%) (Auto) % (0.0-3.0) Basophils (%) (Auto) % (0.0-2.0) Differential Total Cells Counted 100 Neutrophils % (Manual) 92 % (45-75) H Lymphocytes % (Manual) 3 % (20-45) L Monocytes % (Manual) 1 % (1-10) Eosinophils % (Manual) 0 % (0-3) Basophils % (Manual) 0 % (0-2) Band Neutrophils 4 % (0-8) Platelet Estimate Adequate Platelet Morphology Normal Red Blood Cell Morphology Normal Sodium Level 133 MMOL/L (136-145) L Potassium Level 3.9 MMOL/L (3.5-5.1) Chloride Level 94 MMOL/L (98-107) L Carbon Dioxide Level 29 MMOL/L (21-32) Anion Gap 11 mmol/L (5-15) Blood Urea Nitrogen 18 mg/dL (7-18) Creatinine 0.7 MG/DL (0.55-1.30) Estimat Glomerular Filtration Rate > 60 mL/min (>60) Glucose Level 193 MG/DL (74-106) H Hemoglobin A1c 7.0 % (4.3-6.0) H Calcium Level 9.4 MG/DL (8.5-10.1) Total Bilirubin 0.2 MG/DL (0.2-1.0) Aspartate Amino Transf (AST/SGOT) 15 U/L (15-37) Alanine Aminotransferase (ALT/SGPT) 36 U/L (12-78) Alkaline Phosphatase 86 U/L (46-116) Total Protein 7.4 G/DL (6.4-8.2) Albumin 3.4 G/DL (3.4-5.0) Globulin 4.0 g/dL Albumin/Globulin Ratio 0.9 (1.0-2.7) L Intake and Output 04/03/17 04/04/17 19:00 07:00 Intake Total 720 ml 300 ml Output Total 450 ml 600 ml Balance 270 ml -300 ml Intake Oral 720 ml IV Total 300 ml Output Urine Total 450 ml 600 ml # Voids 2 Assessment/Plan Problem List: (1) Hyponatremia Assessment & Plan: ?SIADH? Nephrology workup in progress. Continue norm saline IV (2) Obesity (3) Dyspnea (4) COPD exacerbation Assessment & Plan: Cont levaquin and solumedrol (5) HTN (hypertension) (6) Hypercholesterolemia (7) Diabetes mellitus Assessment & Plan: Uncontrolled due to IV solumedrol. Continue novolog sliding scale. (8) Cardiomegaly Assessment & Plan: see cardiology note. Await echocardiogram (9) Schizophrenia Assessment & Plan: See psych note. Continue depakote and clozaril Status: not improved GORGE RODAS Apr 04, 2017 16:30
--- NOTE | 2017-04-04 18:59 | Nephrology Progress Note ---
Assessment/Plan Assessment 1. Hypomagnesemia. 2. isovolemic hyponatremia 3. Hypertension, well controlled. 4. Morbid obesity. 5. Dyslipidemia. Plan mix all ivpb with NS.9 Free water resection monitoring electrolyte replace electrolyte as need it avoid NSIAD Subjective Constitutional: Reports: fever, malaise HEENT: Reports: no symptoms Genitourinary: Reports: no symptoms Neurologic/Psychiatric: Reports: no symptoms, numbness Subjective no events c/o cough and wheezing Objective Objective Last 24 Hour Vital Signs Date Time Temp Pulse Resp B/P (MAP) Pulse Ox O2 Delivery O2 Flow Rate FiO2 04/04/17 15:58 98.2 82 20 137/79 94 98.2 04/04/17 13:05 96 20 97 Room Air 04/04/17 13:00 95 20 93 Room Air 04/04/17 12:01 98.4 97 21 136/73 97 98.4 04/04/17 07:38 97.9 95 19 153/83 92 97.9 04/04/17 07:31 97 20 96 Room Air 04/04/17 07:31 96 Room Air 04/04/17 07:31 Room Air 04/04/17 07:26 90 20 92 Room Air 04/04/17 04:00 97.3 87 20 131/85 97 97.3 04/04/17 03:00 70 16 98 Facial 30 04/04/17 02:15 97.1 79 20 133/78 94 97.1 04/04/17 01:00 73 17 97 Facial 30 04/04/17 00:00 96.4 93 18 129/62 96 Nasal Cannula 2.0 96.4 04/03/17 20:57 92 20 Nasal Cannula 2.0 28 04/03/17 20:00 92 20 95 Nasal Cannula 3.0 32 04/03/17 20:00 98.2 90 20 145/85 94 Nasal Cannula 2.0 98.2 04/03/17 20:00 93 Nasal Cannula 2.0 28 04/03/17 20:00 98 20 98 Nasal Cannula 3.0 32 04/03/17 20:00 Nasal Cannula 2.0 28 04/03/17 20:00 90 04/03/17 19:30 92 20 Nasal Cannula 2.0 28 Intake and Output 04/03/17 04/04/17 19:00 07:00 Intake Total 720 ml 300 ml Output Total 450 ml 600 ml Balance 270 ml -300 ml Intake Oral 720 ml IV Total 300 ml Output Urine Total 450 ml 600 ml # Voids 2 Laboratory Tests 04/04/17 10:14: White Blood Count 12.7H, Red Blood Count 4.64L, Hemoglobin 14.2, Hematocrit 40.8L, Mean Corpuscular Volume 88, Mean Corpuscular Hemoglobin 30.5, Mean Corpuscular Hemoglobin Concent 34.7, Red Cell Distribution Width 12.6, Platelet Count 303, Mean Platelet Volume 7.7, Neutrophils (%) (Auto) , Lymphocytes (%) ( Auto) , Monocytes (%) (Auto) , Eosinophils (%) (Auto) , Basophils (%) (Auto) , Differential Total Cells Counted 100, Neutrophils % (Manual) 92H, Lymphocytes % (Manual) 3L, Monocytes % (Manual) 1, Eosinophils % (Manual) 0, Basophils % ( Manual) 0, Band Neutrophils 4, Platelet Estimate Adequate, Platelet Morphology Normal, Red Blood Cell Morphology Normal, Sodium Level 133L, Potassium Level 3.9 , Chloride Level 94L, Carbon Dioxide Level 29, Anion Gap 11, Blood Urea Nitrogen 18, Creatinine 0.7, Estimat Glomerular Filtration Rate > 60, Glucose Level 193H, Hemoglobin A1c 7.0H, Calcium Level 9.4, Total Bilirubin 0.2, Aspartate Amino Transf (AST/SGOT) 15, Alanine Aminotransferase (ALT/SGPT) 36, Alkaline Phosphatase 86, Total Protein 7.4, Albumin 3.4, Globulin 4.0, Albumin/ Globulin Ratio 0.9L Height (Feet): 6 Height (Inches): 1.00 Weight (Pounds): 259 Objective HEAD AND NECK: No JVP. No LAD. No thyromegaly. Extraocular movements are intact. Pupils are reactive to light and accommodation. LUNGS: He has bilateral wheezing. Decreased air movement. CARDIAC: Regular rate and rhythm. S1 and S2. No murmur. No rub. ABDOMEN: Soft, nontender, obese, and nondistended. EXTREMITIES: Trace edema. No clubbing. No cyanosis. JESSICA PALACIOS Apr 04, 2017 18:59
--- NOTE | 2017-04-04 19:15 | Progress Note ---
DATE: 04/04/2017 SUBJECTIVE: The patient is the same in bed. Eyes are closed. Still confused and there is a paucity of thought content. Disorganized . Not agitated today. MENTAL STATUS EXAMINATION: The patient is alert and oriented times self, place, and situation he is in. Mood is dysphoric. Affect is constricted. Congruent with mood. Thought process is concrete. Thought content, no suicidal or homicidal ideations. Cognition is impaired. ASSESSMENT: Encephalopathy, dementia, and agitation. PLAN: We will continue current medications. Ayad Adhikari M.D. DR: CHAVEZ JOB#: [id number] CC:
--- NOTE | 2017-04-04 19:23 | Cardiology Progress Note ---
Assessment/Plan Assessment/Plan 1. Dyspnea due to acute exacerbation of chronic obstructive pulmonary disease. Awaiting 2D echocardiography. 2. History of psychiatric disorder. 3. Low magnesium level, Mg level in am. 4. History of hypertension, continue losartan and metoprolol. 5. History of diabetes mellitus. Aspirin and statin on a long-term basis. Subjective Cardiovascular: Reports: no symptoms Respiratory: Reports: cough, wheezing Gastrointestinal/Abdominal: Reports: no symptoms Genitourinary: Reports: no symptoms Subjective Not on the telemetry unit. Denies chest pain. Objective Last 24 Hour Vital Signs Date Time Temp Pulse Resp B/P (MAP) Pulse Ox O2 Delivery O2 Flow Rate FiO2 04/04/17 15:58 98.2 82 20 137/79 94 98.2 04/04/17 13:05 96 20 97 Room Air 04/04/17 13:00 95 20 93 Room Air 04/04/17 12:01 98.4 97 21 136/73 97 98.4 04/04/17 07:38 97.9 95 19 153/83 92 97.9 04/04/17 07:31 97 20 96 Room Air 04/04/17 07:31 96 Room Air 04/04/17 07:31 Room Air 04/04/17 07:26 90 20 92 Room Air 04/04/17 04:00 97.3 87 20 131/85 97 97.3 04/04/17 03:00 70 16 98 Facial 30 04/04/17 02:15 97.1 79 20 133/78 94 97.1 04/04/17 01:00 73 17 97 Facial 30 04/04/17 00:00 96.4 93 18 129/62 96 Nasal Cannula 2.0 96.4 04/03/17 20:57 92 20 Nasal Cannula 2.0 28 04/03/17 20:00 92 20 95 Nasal Cannula 3.0 32 04/03/17 20:00 98.2 90 20 145/85 94 Nasal Cannula 2.0 98.2 04/03/17 20:00 93 Nasal Cannula 2.0 28 04/03/17 20:00 98 20 98 Nasal Cannula 3.0 32 04/03/17 20:00 Nasal Cannula 2.0 28 04/03/17 20:00 90 04/03/17 19:30 92 20 Nasal Cannula 2.0 28 Intake and Output 04/03/17 04/04/17 19:00 07:00 Intake Total 720 ml 300 ml Output Total 450 ml 600 ml Balance 270 ml -300 ml Intake Oral 720 ml IV Total 300 ml Output Urine Total 450 ml 600 ml # Voids 2 Laboratory Tests Test 04/04/17 10:14 White Blood Count 12.7 K/UL (4.8-10.8) H Red Blood Count 4.64 M/UL (4.70-6.10) L Hemoglobin 14.2 G/DL (14.2-18.0) Hematocrit 40.8 % (42.0-52.0) L Mean Corpuscular Volume 88 FL (80-99) Mean Corpuscular Hemoglobin 30.5 PG (27.0-31.0) Mean Corpuscular Hemoglobin Concent 34.7 G/DL (32.0-36.0) Red Cell Distribution Width 12.6 % (11.6-14.8) Platelet Count 303 K/UL (150-450) Mean Platelet Volume 7.7 FL (6.5-10.1) Neutrophils (%) (Auto) % (45.0-75.0) Lymphocytes (%) (Auto) % (20.0-45.0) Monocytes (%) (Auto) % (1.0-10.0) Eosinophils (%) (Auto) % (0.0-3.0) Basophils (%) (Auto) % (0.0-2.0) Differential Total Cells Counted 100 Neutrophils % (Manual) 92 % (45-75) H Lymphocytes % (Manual) 3 % (20-45) L Monocytes % (Manual) 1 % (1-10) Eosinophils % (Manual) 0 % (0-3) Basophils % (Manual) 0 % (0-2) Band Neutrophils 4 % (0-8) Platelet Estimate Adequate Platelet Morphology Normal Red Blood Cell Morphology Normal Sodium Level 133 MMOL/L (136-145) L Potassium Level 3.9 MMOL/L (3.5-5.1) Chloride Level 94 MMOL/L (98-107) L Carbon Dioxide Level 29 MMOL/L (21-32) Anion Gap 11 mmol/L (5-15) Blood Urea Nitrogen 18 mg/dL (7-18) Creatinine 0.7 MG/DL (0.55-1.30) Estimat Glomerular Filtration Rate > 60 mL/min (>60) Glucose Level 193 MG/DL (74-106) H Hemoglobin A1c 7.0 % (4.3-6.0) H Calcium Level 9.4 MG/DL (8.5-10.1) Total Bilirubin 0.2 MG/DL (0.2-1.0) Aspartate Amino Transf (AST/SGOT) 15 U/L (15-37) Alanine Aminotransferase (ALT/SGPT) 36 U/L (12-78) Alkaline Phosphatase 86 U/L (46-116) Total Protein 7.4 G/DL (6.4-8.2) Albumin 3.4 G/DL (3.4-5.0) Globulin 4.0 g/dL Albumin/Globulin Ratio 0.9 (1.0-2.7) L Objective HEENT: Atraumatic and normocephalic. ENT, pupils are equal, round, and reactive to light and accommodation. Extraocular muscles intact. NECK: JVP less than 5 cm. No carotid bruit. Carotid upstrokes 2+ bilaterally. CARDIOVASCULAR: Normal S1 and S2. Regular rate and rhythm. Tachycardic. No murmurs, gallops, or rubs. PMI is at fourth intercostal space at the midclavicular line. LUNGS: Diminished breath sounds in both lungs with associated rhonchi in both lungs. No crackles. ABDOMEN: Soft, nontender, and nondistended. No hepatosplenomegaly. Positive bowel sounds. EXTREMITIES: No evidence of edema, clubbing, or cyanosis. MARIAH STAPLETON Apr 04, 2017 19:23
[2017-04-04] MEDS: Depakote 500mg tab ORAL SCH (21:45)
[2017-04-05] VITALS: BP 140/74
[2017-04-05 04:00] VITALS: BP 150/86
[2017-04-05] MEDS: NovoLOG Insulin Flexpen SUBQ SCH ×4 (06:23→20:45)
[2017-04-05] MEDS: Albuterol/Ipratropium 3ml neb HHN SCH ×3 (07:23→19:13)
[2017-04-05 07:32] LABS: BASOPHILS % (AUTO) 0.5 % (0.0-2.0); HEMATOCRIT 42.1 % (42.0-52.0); HEMOGLOBIN 14.4 G/DL (14.2-18.0); LYMPHOCYTES % (AUTO) 17.4 % (20.0-45.0); MEAN CORPUSCULAR VOLUME 89 FL (80-99); MONOCYTES % (AUTO) 5.7 % (1.0-10.0); NEUTROPHILS % (AUTO) 76.4 % (45.0-75.0); PLATELET COUNT 377 K/UL (150-450); RED BLOOD COUNT 4.72 M/UL (4.70-6.10); WHITE BLOOD COUNT 16.2 K/UL (4.8-10.8)
[2017-04-05 07:55] LABS: ALANINE AMINOTRANSFERASE 24 U/L (12-78); ALBUMIN 3.2 G/DL (3.4-5.0); ALBUMIN/GLOBULIN RATIO 0.9 (1.0-2.7); ALKALINE PHOSPHATASE 77 U/L (46-116); ANION GAP 5 mmol/L (5-15); ASPARTATE AMINO TRANSFERASE 14 U/L (15-37); BILIRUBIN,TOTAL 0.2 MG/DL (0.2-1.0); BLOOD UREA NITROGEN 20 mg/dL (7-18); CALCIUM 9.2 MG/DL (8.5-10.1); CARBON DIOXIDE 31 MMOL/L (21-32); CHLORIDE 99 MMOL/L (98-107); CREATININE 0.7 MG/DL (0.55-1.30); PHOSPHORUS 3.9 MG/DL (2.5-4.9); POTASSIUM 4.4 MMOL/L (3.5-5.1); SODIUM 135 MMOL/L (136-145)
[2017-04-05 08:00] VITALS: BP 148/84
[2017-04-05] MEDS: Levofloxacin 500mg tab ORAL SCH (08:48)
[2017-04-05] MEDS: Theophylline ER 100mg ORAL SCH ×2 (08:48→20:42)
[2017-04-05] MEDS: DULoxetine 30mg cap ORAL SCH (08:48)
[2017-04-05] MEDS: Heparin 5000 units/ml inj SUBQ SCH ×2 (08:51→20:44)
--- NOTE | 2017-04-05 08:58 | Nephrology Progress Note ---
Assessment/Plan Assessment 1. Hypomagnesemia. 2. isovolemic hyponatremia improving 3. Hypertension, well controlled. 4. Morbid obesity. 5. Dyslipidemia. Plan mix all ivpb with NS.9 Free water resection monitoring electrolyte replace electrolyte as need it avoid NSIAD Subjective Constitutional: Reports: fever, weakness HEENT: Reports: no symptoms Neurologic/Psychiatric: Reports: no symptoms Subjective no events c/o cough and wheezing Objective Objective Last 24 Hour Vital Signs Date Time Temp Pulse Resp B/P (MAP) Pulse Ox O2 Delivery O2 Flow Rate FiO2 04/05/17 08:00 97.8 72 20 148/84 95 97.8 04/05/17 07:35 80 22 99 Nasal Cannula 2.0 04/05/17 07:26 91 Room Air 04/05/17 07:26 Nasal Cannula 2.0 04/05/17 07:26 78 18 91 Room Air 04/05/17 04:00 97.9 72 20 150/86 95 97.9 04/05/17 03:21 68 18 97 Facial 30 04/05/17 01:27 84 19 97 Facial 30 04/05/17 00:00 97.0 88 20 140/74 95 Room Air 97.0 04/04/17 22:48 88 20 96 Facial 30 04/04/17 20:15 88 20 99 Room Air 21 04/04/17 20:05 87 20 93 Room Air 04/04/17 20:05 Room Air 04/04/17 20:05 93 Room Air 04/04/17 20:00 97.9 91 20 147/87 93 Room Air 97.9 04/04/17 15:58 98.2 82 20 137/79 94 98.2 04/04/17 13:05 96 20 97 Room Air 04/04/17 13:00 95 20 93 Room Air 04/04/17 12:01 98.4 97 21 136/73 97 98.4 Intake and Output 04/04/17 04/05/17 19:00 07:00 Intake Total 1440 ml 770 ml Balance 1440 ml 770 ml Intake Oral 890 ml 220 ml IV Total 550 ml 550 ml # Voids 2 # Bowel Movements 1 Laboratory Tests 04/04/17 10:14: White Blood Count 12.7H, Red Blood Count 4.64L, Hemoglobin 14.2, Hematocrit 40.8L, Mean Corpuscular Volume 88, Mean Corpuscular Hemoglobin 30.5, Mean Corpuscular Hemoglobin Concent 34.7, Red Cell Distribution Width 12.6, Platelet Count 303, Mean Platelet Volume 7.7, Neutrophils (%) (Auto) , Lymphocytes (%) ( Auto) , Monocytes (%) (Auto) , Eosinophils (%) (Auto) , Basophils (%) (Auto) , Differential Total Cells Counted 100, Neutrophils % (Manual) 92H, Lymphocytes % (Manual) 3L, Monocytes % (Manual) 1, Eosinophils % (Manual) 0, Basophils % ( Manual) 0, Band Neutrophils 4, Platelet Estimate Adequate, Platelet Morphology Normal, Red Blood Cell Morphology Normal, Sodium Level 133L, Potassium Level 3.9 , Chloride Level 94L, Carbon Dioxide Level 29, Anion Gap 11, Blood Urea Nitrogen 18, Creatinine 0.7, Estimat Glomerular Filtration Rate > 60, Glucose Level 193H, Hemoglobin A1c 7.0H, Calcium Level 9.4, Total Bilirubin 0.2, Aspartate Amino Transf (AST/SGOT) 15, Alanine Aminotransferase (ALT/SGPT) 36, Alkaline Phosphatase 86, Total Protein 7.4, Albumin 3.4, Globulin 4.0, Albumin/ Globulin Ratio 0.9L 04/05/17 06:32: White Blood Count 16.2H, Red Blood Count 4.72, Hemoglobin 14.4, Hematocrit 42.1 , Mean Corpuscular Volume 89, Mean Corpuscular Hemoglobin 30.6, Mean Corpuscular Hemoglobin Concent 34.3, Red Cell Distribution Width 13.0, Platelet Count 377, Mean Platelet Volume 7.3, Neutrophils (%) (Auto) 76.4H, Lymphocytes ( %) (Auto) 17.4L, Monocytes (%) (Auto) 5.7, Eosinophils (%) (Auto) 0.0, Basophils (%) (Auto) 0.5, Sodium Level 135L, Potassium Level 4.4, Chloride Level 99, Carbon Dioxide Level 31, Anion Gap 5, Blood Urea Nitrogen 20H, Creatinine 0.7, Estimat Glomerular Filtration Rate > 60, Glucose Level 108H, Calcium Level 9.2, Total Bilirubin 0.2, Aspartate Amino Transf (AST/SGOT) 14L, Alanine Aminotransferase (ALT/SGPT) 24, Alkaline Phosphatase 77, Total Protein 6.8, Albumin 3.2L, Globulin 3.6, Albumin/Globulin Ratio 0.9L, Erythrocyte Sedimentation Rate [Pending], Phosphorus Level 3.9, Magnesium Level 2.1 Height (Feet): 6 Height (Inches): 1.00 Weight (Pounds): 259 Objective HEAD AND NECK: No JVP. No LAD. No thyromegaly. Extraocular movements are intact. Pupils are reactive to light and accommodation. LUNGS: He has bilateral wheezing. Decreased air movement. CARDIAC: Regular rate and rhythm. S1 and S2. No murmur. No rub. ABDOMEN: Soft, nontender, obese, and nondistended. EXTREMITIES: Trace edema. No clubbing. No cyanosis. JESSICA PALACIOS Apr 05, 2017 08:58
[2017-04-05] MEDS ORDERED: Solu-MEDROL 125mg Inj IV SCH (09:00)
[2017-04-05 12:15] VITALS: BP 109/59
[2017-04-05] MEDS ORDERED: LORazepam 1mg tab ORAL PRN (12:15)
[2017-04-05 16:15] VITALS: BP 143/91
--- NOTE | 2017-04-05 16:32 | Pulmonology Progress Note ---
Assessment/Plan Problems: (1) Respiratory failure (2) COPD exacerbation (3) Obstructive sleep apnea (4) Dyspnea (5) HTN (hypertension) (6) Schizophrenia (7) Diabetes mellitus Assessment/Plan improving respiratory treatment taper steroids titrate fio2 psychiatry to se sliding scale dvt prophylaxis. Subjective ROS Limited/Unobtainable: No Interval Events: less cough, less short of breath Constitutional: Reports: no symptoms Respiratory: Reports: no symptoms Allergies: Coded Allergies: No Known Allergies (Verified Allergy, Unknown, 09/29/08) Objective Last 24 Hour Vital Signs Date Time Temp Pulse Resp B/P (MAP) Pulse Ox O2 Delivery O2 Flow Rate FiO2 04/05/17 13:35 80 18 92 Room Air 04/05/17 12:15 97.6 80 22 109/59 100 Nasal Cannula 2.0 97.6 04/05/17 08:00 97.8 72 20 148/84 95 97.8 04/05/17 07:35 80 22 99 Nasal Cannula 2.0 04/05/17 07:26 91 Room Air 04/05/17 07:26 Nasal Cannula 2.0 04/05/17 07:26 78 18 91 Room Air 04/05/17 04:00 97.9 72 20 150/86 95 97.9 04/05/17 03:21 68 18 97 Facial 30 04/05/17 01:27 84 19 97 Facial 30 04/05/17 00:00 97.0 88 20 140/74 95 Room Air 97.0 04/04/17 22:48 88 20 96 Facial 30 04/04/17 20:15 88 20 99 Room Air 21 04/04/17 20:05 87 20 93 Room Air 04/04/17 20:05 Room Air 04/04/17 20:05 93 Room Air 04/04/17 20:00 97.9 91 20 147/87 93 Room Air 97.9 Intake and Output 04/04/17 04/05/17 19:00 07:00 Intake Total 1440 ml 770 ml Balance 1440 ml 770 ml Intake Oral 890 ml 220 ml IV Total 550 ml 550 ml # Voids 2 # Bowel Movements 1 Objective General Appearance: no apparent distress, alert, other - obese with flat affect awake, alert, responsive male in NAD Lines, tubes and drains: peripheral HEENT: normocephalic, atraumatic, anicteric Neck: non-tender, supple Respiratory/Chest: decreased breath sounds Cardiovascular/Chest: normal rate, regular rhythm - SR with PVC Abdomen: normal bowel sounds, non tender - obese , soft Neurologic: no motor/sensory deficits, alert, responsive Musculoskeletal: normal muscle bulk Laboratory Tests 04/05/17 06:32: White Blood Count 16.2H, Red Blood Count 4.72, Hemoglobin 14.4, Hematocrit 42.1 , Mean Corpuscular Volume 89, Mean Corpuscular Hemoglobin 30.6, Mean Corpuscular Hemoglobin Concent 34.3, Red Cell Distribution Width 13.0, Platelet Count 377, Mean Platelet Volume 7.3, Neutrophils (%) (Auto) 76.4H, Lymphocytes ( %) (Auto) 17.4L, Monocytes (%) (Auto) 5.7, Eosinophils (%) (Auto) 0.0, Basophils (%) (Auto) 0.5, Erythrocyte Sedimentation Rate 17, Sodium Level 135L, Potassium Level 4.4, Chloride Level 99, Carbon Dioxide Level 31, Anion Gap 5, Blood Urea Nitrogen 20H, Creatinine 0.7, Estimat Glomerular Filtration Rate > 60 , Glucose Level 108H, Calcium Level 9.2, Phosphorus Level 3.9, Magnesium Level 2.1, Total Bilirubin 0.2, Aspartate Amino Transf (AST/SGOT) 14L, Alanine Aminotransferase (ALT/SGPT) 24, Alkaline Phosphatase 77, Total Protein 6.8, Albumin 3.2L, Globulin 3.6, Albumin/Globulin Ratio 0.9L Current Medications Medications (Trade) Dose Ordered Sig/Luly Route PRN Reason Start Time Stop Time Status Last Admin Dose Admin Acetaminophen (Tylenol) 650 mg Q4H PRN ORAL fever 04/04/17 02:30 05/03/17 06:29 Albuterol/ Ipratropium (Albuterol/ Ipratropium) 3 ml Q4H PRN HHN dyspnea 04/04/17 03:07 04/09/17 03:06 Albuterol/ Ipratropium (Albuterol/ Ipratropium) 3 ml TIDRT HHN 04/04/17 07:00 04/08/17 18:59 04/05/17 13:35 Clonidine HCl (Catapres Tab) 0.1 mg Q4H PRN ORAL sbp more than 160 04/04/17 03:05 05/04/17 03:04 Clozapine (Clozaril) 75 mg QHS ORAL 04/04/17 21:00 04/10/17 20:59 04/04/17 21:45 Dextrose (Dextrose 50%) STAT PRN IV Hypoglycemia 04/04/17 03:06 05/03/17 03:05 Divalproex Sodium (Depakote) 1,000 mg QHS ORAL 04/04/17 21:00 05/03/17 20:59 04/04/17 21:45 Duloxetine HCl (Cymbalta) 30 mg DAILY ORAL 04/04/17 09:00 05/03/17 08:59 04/05/17 08:48 Famotidine (Pepcid) 20 mg ACBREAKFAST ORAL 04/04/17 06:30 05/03/17 06:29 04/05/17 06:22 Heparin Sodium (Porcine) (Heparin 5000 units/ml) 5,000 units EVERY 12 HOURS SUBQ 04/04/17 09:00 05/03/17 20:59 04/05/17 08:51 Insulin Aspart (NovoLOG) BEFORE MEALS AND HS SUBQ 04/04/17 06:30 05/03/17 06:29 04/05/17 12:29 Levofloxacin (Levaquin) 500 mg DAILY ORAL 04/04/17 09:00 04/10/17 15:59 04/05/17 08:48 Lorazepam (Ativan) 1 mg Q6H PRN ORAL For Anxiety 04/05/17 12:15 04/12/17 12:14 Methylprednisolone Sodium Succinate (Solu-MEDROL) 60 mg DAILY IV 04/05/17 09:00 05/03/17 11:59 04/05/17 08:48 Morphine Sulfate (Morphine Sulfate) 2 mg Q4H PRN IVP severe pain 7-10 04/04/17 03:08 04/11/17 03:07 Nicotine (Nicoderm) 1 patch Q24H TDERMAL 04/04/17 16:00 05/03/17 15:59 04/04/17 16:06 Nitroglycerin (Ntg) 0.4 mg Q5M X 3 DOSES PRN SL Prn Chest Pain 04/04/17 02:30 05/03/17 06:29 Ondansetron HCl (Zofran) 4 mg Q6H PRN IVP Nausea & Vomiting 04/04/17 03:09 05/03/17 03:08 Promethazine HCl/ Codeine (Phenergan with Codeine) 5 ml Q6H PRN ORAL cough 04/04/17 03:09 05/04/17 03:08 Risperidone (RisperDAL) 4 mg BEDTIME ORAL 04/04/17 21:00 05/03/17 08:59 04/04/17 21:44 Temazepam (Restoril) 15 mg HSPRN PRN ORAL Insomnia 04/04/17 03:10 04/10/17 03:09 Theophylline (Sd-Dur) 100 mg EVERY 12 HOURS ORAL 04/04/17 09:00 05/03/17 08:59 04/05/17 08:48 CONRAD KRISHNA Apr 05, 2017 16:32
--- NOTE | 2017-04-05 17:40 | Internal Med Progress Note ---
Subjective Date of Service: Apr 05, 2017 Physician Name Gorge Rodas Attending Physician Jamil Plascencia MD Current Medications Medications (Trade) Dose Ordered Sig/Luly Route PRN Reason Start Time Stop Time Status Last Admin Dose Admin Acetaminophen (Tylenol) 650 mg Q4H PRN ORAL fever 04/04/17 02:30 05/03/17 06:29 Albuterol/ Ipratropium (Albuterol/ Ipratropium) 3 ml Q4H PRN HHN dyspnea 04/04/17 03:07 04/09/17 03:06 Albuterol/ Ipratropium (Albuterol/ Ipratropium) 3 ml TIDRT HHN 04/04/17 07:00 04/08/17 18:59 04/05/17 13:35 Clonidine HCl (Catapres Tab) 0.1 mg Q4H PRN ORAL sbp more than 160 04/04/17 03:05 05/04/17 03:04 Clozapine (Clozaril) 75 mg QHS ORAL 04/04/17 21:00 04/10/17 20:59 04/04/17 21:45 Dextrose (Dextrose 50%) STAT PRN IV Hypoglycemia 04/04/17 03:06 05/03/17 03:05 Divalproex Sodium (Depakote) 1,000 mg QHS ORAL 04/04/17 21:00 05/03/17 20:59 04/04/17 21:45 Duloxetine HCl (Cymbalta) 30 mg DAILY ORAL 04/04/17 09:00 05/03/17 08:59 04/05/17 08:48 Famotidine (Pepcid) 20 mg ACBREAKFAST ORAL 04/04/17 06:30 05/03/17 06:29 04/05/17 06:22 Heparin Sodium (Porcine) (Heparin 5000 units/ml) 5,000 units EVERY 12 HOURS SUBQ 04/04/17 09:00 05/03/17 20:59 04/05/17 08:51 Insulin Aspart (NovoLOG) BEFORE MEALS AND HS SUBQ 04/04/17 06:30 05/03/17 06:29 04/05/17 17:24 Levofloxacin (Levaquin) 500 mg DAILY ORAL 04/04/17 09:00 04/10/17 15:59 04/05/17 08:48 Lorazepam (Ativan) 1 mg Q6H PRN ORAL For Anxiety 04/05/17 12:15 04/12/17 12:14 Methylprednisolone Sodium Succinate (Solu-MEDROL) 40 mg DAILY IVP 04/06/17 09:00 05/06/17 08:59 Morphine Sulfate (Morphine Sulfate) 2 mg Q4H PRN IVP severe pain 7-10 04/04/17 03:08 04/11/17 03:07 Nicotine (Nicoderm) 1 patch Q24H TDERMAL 04/04/17 16:00 05/03/17 15:59 04/05/17 17:25 Nitroglycerin (Ntg) 0.4 mg Q5M X 3 DOSES PRN SL Prn Chest Pain 04/04/17 02:30 05/03/17 06:29 Ondansetron HCl (Zofran) 4 mg Q6H PRN IVP Nausea & Vomiting 04/04/17 03:09 05/03/17 03:08 Promethazine HCl/ Codeine (Phenergan with Codeine) 5 ml Q6H PRN ORAL cough 04/04/17 03:09 05/04/17 03:08 Risperidone (RisperDAL) 4 mg BEDTIME ORAL 04/04/17 21:00 05/03/17 08:59 04/04/17 21:44 Temazepam (Restoril) 15 mg HSPRN PRN ORAL Insomnia 04/04/17 03:10 04/10/17 03:09 Theophylline (Sd-Dur) 100 mg EVERY 12 HOURS ORAL 04/04/17 09:00 05/03/17 08:59 04/05/17 08:48 Allergies: Coded Allergies: No Known Allergies (Verified Allergy, Unknown, 09/29/08) ROS Limited/Unobtainable: No Constitutional: Reports: no symptoms HEENT: Reports: no symptoms Cardiovascular: Reports: no symptoms Respiratory: Reports: shortness of breath Gastrointestinal/Abdominal: Reports: no symptoms Genitourinary: Reports: no symptoms Neurologic/Psychiatric: Reports: no symptoms Subjective 66 YO M admitted with shortness of breath. Now COPD exacerbation. Cover for Olegario Argueta-Dr Plascencia. Objective Last Vital Signs Date Time Temp Pulse Resp B/P (MAP) Pulse Ox O2 Delivery O2 Flow Rate FiO2 04/05/17 16:15 98.2 81 18 143/91 94 Room Air 98.2 04/05/17 12:15 2.0 04/05/17 03:21 30 Laboratory Tests Test 04/05/17 06:32 White Blood Count 16.2 K/UL (4.8-10.8) H Red Blood Count 4.72 M/UL (4.70-6.10) Hemoglobin 14.4 G/DL (14.2-18.0) Hematocrit 42.1 % (42.0-52.0) Mean Corpuscular Volume 89 FL (80-99) Mean Corpuscular Hemoglobin 30.6 PG (27.0-31.0) Mean Corpuscular Hemoglobin Concent 34.3 G/DL (32.0-36.0) Red Cell Distribution Width 13.0 % (11.6-14.8) Platelet Count 377 K/UL (150-450) Mean Platelet Volume 7.3 FL (6.5-10.1) Neutrophils (%) (Auto) 76.4 % (45.0-75.0) H Lymphocytes (%) (Auto) 17.4 % (20.0-45.0) L Monocytes (%) (Auto) 5.7 % (1.0-10.0) Eosinophils (%) (Auto) 0.0 % (0.0-3.0) Basophils (%) (Auto) 0.5 % (0.0-2.0) Erythrocyte Sedimentation Rate 17 MM/HR (0-20) Sodium Level 135 MMOL/L (136-145) L Potassium Level 4.4 MMOL/L (3.5-5.1) Chloride Level 99 MMOL/L (98-107) Carbon Dioxide Level 31 MMOL/L (21-32) Anion Gap 5 mmol/L (5-15) Blood Urea Nitrogen 20 mg/dL (7-18) H Creatinine 0.7 MG/DL (0.55-1.30) Estimat Glomerular Filtration Rate > 60 mL/min (>60) Glucose Level 108 MG/DL (74-106) H Calcium Level 9.2 MG/DL (8.5-10.1) Phosphorus Level 3.9 MG/DL (2.5-4.9) Magnesium Level 2.1 MG/DL (1.8-2.4) Total Bilirubin 0.2 MG/DL (0.2-1.0) Aspartate Amino Transf (AST/SGOT) 14 U/L (15-37) L Alanine Aminotransferase (ALT/SGPT) 24 U/L (12-78) Alkaline Phosphatase 77 U/L (46-116) Total Protein 6.8 G/DL (6.4-8.2) Albumin 3.2 G/DL (3.4-5.0) L Globulin 3.6 g/dL Albumin/Globulin Ratio 0.9 (1.0-2.7) L Intake and Output 04/04/17 04/05/17 19:00 07:00 Intake Total 1440 ml 770 ml Balance 1440 ml 770 ml Intake Oral 890 ml 220 ml IV Total 550 ml 550 ml # Voids 2 # Bowel Movements 1 Objective General Appearance: WD/WN, alert, mild distress EENT: PERRL/EOMI, normal ENT inspection Neck: non-tender, normal alignment, supple, normal inspection Cardiovascular: normal peripheral pulses, normal rate, regular rhythm, no gallop/murmur, no JVD Respiratory/Chest: respiratory distress, crackles/rales, rhonchi - bilaterally , expiratory wheezing Abdomen: normal bowel sounds, non tender, soft, no organomegaly, no mass Extremities: normal range of motion, non-tender Neurologic: bingo usher II-XII grossly normal, no motor/sensory deficits Skin: normal pigmentation, warm/dry Assessment/Plan Problem List: (1) Hyponatremia Assessment & Plan: ?SIADH? Nephrology workup in progress. Continue norm saline IV (2) Obesity (3) Dyspnea (4) COPD exacerbation Assessment & Plan: Cont levaquin and solumedrol (5) HTN (hypertension) (6) Hypercholesterolemia (7) Diabetes mellitus Assessment & Plan: Uncontrolled due to IV solumedrol. Continue novolog sliding scale. (8) Cardiomegaly Assessment & Plan: see cardiology note. Await echocardiogram (9) Schizophrenia Assessment & Plan: See psych note. Continue depakote and clozaril Status: not improved GORGE RODAS Apr 05, 2017 17:40
[2017-04-05 19:51] VITALS: BP 143/86
[2017-04-05] MEDS: Depakote 500mg tab ORAL SCH (20:43)
[2017-04-06 04:00] VITALS: BP 160/89
[2017-04-06] MEDS: NovoLOG Insulin Flexpen SUBQ SCH ×4 (06:30→22:44)
[2017-04-06 06:36] LABS: BASOPHILS % (AUTO) 0.7 % (0.0-2.0); EOSINOPHILS % (AUTO) 0.1 % (0.0-3.0); HEMATOCRIT 42.8 % (42.0-52.0); HEMOGLOBIN 14.9 G/DL (14.2-18.0); LYMPHOCYTES % (AUTO) 37.5 % (20.0-45.0); MEAN CORPUSCULAR VOLUME 88 FL (80-99); MONOCYTES % (AUTO) 6.8 % (1.0-10.0); NEUTROPHILS % (AUTO) 54.9 % (45.0-75.0); PLATELET COUNT 391 K/UL (150-450); RED BLOOD COUNT 4.86 M/UL (4.70-6.10); RED CELL DISTRIBUTION WIDTH 13.1 % (11.6-14.8); WHITE BLOOD COUNT 11.1 K/UL (4.8-10.8)
[2017-04-06] MEDS: Albuterol/Ipratropium 3ml neb HHN SCH ×3 (07:07→20:30)
[2017-04-06 07:21] LABS: ALANINE AMINOTRANSFERASE 30 U/L (12-78); ALBUMIN/GLOBULIN RATIO 0.8 (1.0-2.7); ALKALINE PHOSPHATASE 78 U/L (46-116); ANION GAP 6 mmol/L (5-15); ASPARTATE AMINO TRANSFERASE 11 U/L (15-37); BILIRUBIN,TOTAL 0.2 MG/DL (0.2-1.0); BLOOD UREA NITROGEN 21 mg/dL (7-18); CARBON DIOXIDE 31 MMOL/L (21-32); CHLORIDE 99 MMOL/L (98-107); CREATININE 0.7 MG/DL (0.55-1.30); POTASSIUM 3.9 MMOL/L (3.5-5.1); SODIUM 136 MMOL/L (136-145)
[2017-04-06 08:00] VITALS: BP 142/71
[2017-04-06] MEDS: DULoxetine 30mg cap ORAL SCH (08:52)
[2017-04-06] MEDS: Theophylline ER 100mg ORAL SCH ×2 (08:52→22:38)
[2017-04-06] MEDS: Heparin 5000 units/ml inj SUBQ SCH ×2 (08:56→22:45)
[2017-04-06] MEDS: Levofloxacin 500mg tab ORAL SCH (08:58)
[2017-04-06] MEDS ORDERED: Solu-MEDROL 40mg Inj IVP SCH (09:00)
[2017-04-06 12:00] VITALS: BP 153/92
--- NOTE | 2017-04-06 15:08 | Pulmonology Progress Note ---
Assessment/Plan Problems: (1) Respiratory failure (2) COPD exacerbation (3) Obstructive sleep apnea (4) Dyspnea (5) HTN (hypertension) (6) Schizophrenia (7) Diabetes mellitus Assessment/Plan improving respiratory treatment taper steroids, change to PO titrate fio2 psychiatry to se sliding scale dvt prophylaxis. Subjective ROS Limited/Unobtainable: No Constitutional: Reports: no symptoms HEENT: Repors: no symptoms Respiratory: Reports: no symptoms Allergies: Coded Allergies: No Known Allergies (Verified Allergy, Unknown, 09/29/08) Objective Last 24 Hour Vital Signs Date Time Temp Pulse Resp B/P (MAP) Pulse Ox O2 Delivery O2 Flow Rate FiO2 04/06/17 12:00 97.1 78 20 153/92 97 97.1 04/06/17 11:56 76 18 98 Nasal Cannula 2.0 04/06/17 11:44 75 20 91 Room Air 04/06/17 08:00 97.3 92 20 142/71 92 97.3 04/06/17 07:16 96 20 95 Nasal Cannula 2.0 04/06/17 07:07 89 Room Air 04/06/17 07:07 94 18 89 Room Air 04/06/17 07:07 Nasal Cannula 04/06/17 06:38 160/89 04/06/17 04:00 97.4 81 20 160/89 93 Nasal Cannula 2.0 97.4 04/06/17 01:19 75 19 96 Facial 30 04/06/17 00:00 73 18 96 Facial 30 04/05/17 19:51 97.7 87 20 143/86 90 Room Air 97.7 04/05/17 19:24 88 22 97 Room Air 2.0 04/05/17 19:14 Nasal Cannula 21 04/05/17 19:14 92 Room Air 04/05/17 19:13 86 18 91 Room Air 04/05/17 16:15 98.2 81 18 143/91 94 Room Air 98.2 Intake and Output 04/05/17 04/06/17 19:00 07:00 Intake Total 340 ml 500 ml Output Total 1500 ml Balance -1160 ml 500 ml Intake Oral 340 ml 500 ml Output Urine Total 1500 ml # Voids 2 3 Objective General Appearance: no apparent distress, alert, other - obese with flat affect awake, alert, responsive male in NAD Lines, tubes and drains: peripheral HEENT: normocephalic, atraumatic, anicteric Neck: non-tender, supple Respiratory/Chest: decreased breath sounds Cardiovascular/Chest: normal rate, regular rhythm - SR with PVC Abdomen: normal bowel sounds, non tender - obese , soft Neurologic: no motor/sensory deficits, alert, responsive Musculoskeletal: normal muscle bulk Laboratory Tests 04/06/17 06:00: White Blood Count 11.1H, Red Blood Count 4.86, Hemoglobin 14.9, Hematocrit 42.8 , Mean Corpuscular Volume 88, Mean Corpuscular Hemoglobin 30.7, Mean Corpuscular Hemoglobin Concent 34.8, Red Cell Distribution Width 13.1, Platelet Count 391, Mean Platelet Volume 7.1, Neutrophils (%) (Auto) 54.9, Lymphocytes (% ) (Auto) 37.5, Monocytes (%) (Auto) 6.8, Eosinophils (%) (Auto) 0.1, Basophils ( %) (Auto) 0.7, Sodium Level 136, Potassium Level 3.9, Chloride Level 99, Carbon Dioxide Level 31, Anion Gap 6, Blood Urea Nitrogen 21H, Creatinine 0.7, Estimat Glomerular Filtration Rate > 60, Glucose Level 94, Calcium Level 9.0, Phosphorus Level 4.0, Magnesium Level 1.8, Total Bilirubin 0.2, Aspartate Amino Transf (AST/SGOT) 11L, Alanine Aminotransferase (ALT/SGPT) 30, Alkaline Phosphatase 78, Total Protein 6.6, Albumin 3.0L, Globulin 3.6, Albumin/Globulin Ratio 0.8L Current Medications Medications (Trade) Dose Ordered Sig/Luly Route PRN Reason Start Time Stop Time Status Last Admin Dose Admin Acetaminophen (Tylenol) 650 mg Q4H PRN ORAL fever 04/04/17 02:30 05/03/17 06:29 Albuterol/ Ipratropium (Albuterol/ Ipratropium) 3 ml Q4H PRN HHN dyspnea 04/04/17 03:07 04/09/17 03:06 Albuterol/ Ipratropium (Albuterol/ Ipratropium) 3 ml TIDRT HHN 04/04/17 07:00 04/08/17 18:59 04/06/17 11:44 Clonidine HCl (Catapres Tab) 0.1 mg Q4H PRN ORAL sbp more than 160 04/04/17 03:05 05/04/17 03:04 04/06/17 06:38 Clozapine (Clozaril) 75 mg QHS ORAL 04/04/17 21:00 04/10/17 20:59 04/05/17 20:42 Dextrose (Dextrose 50%) STAT PRN IV Hypoglycemia 04/04/17 03:06 05/03/17 03:05 Divalproex Sodium (Depakote) 1,000 mg QHS ORAL 04/04/17 21:00 05/03/17 20:59 04/05/17 20:43 Duloxetine HCl (Cymbalta) 30 mg DAILY ORAL 04/04/17 09:00 05/03/17 08:59 04/06/17 08:52 Famotidine (Pepcid) 20 mg ACBREAKFAST ORAL 04/04/17 06:30 05/03/17 06:29 04/06/17 06:38 Heparin Sodium (Porcine) (Heparin 5000 units/ml) 5,000 units EVERY 12 HOURS SUBQ 04/04/17 09:00 05/03/17 20:59 04/06/17 08:56 Insulin Aspart (NovoLOG) BEFORE MEALS AND HS SUBQ 04/04/17 06:30 05/03/17 06:29 04/05/17 17:24 Levofloxacin (Levaquin) 500 mg DAILY ORAL 04/04/17 09:00 04/10/17 15:59 04/06/17 08:58 Lorazepam (Ativan) 1 mg Q6H PRN ORAL For Anxiety 04/05/17 12:15 04/12/17 12:14 Methylprednisolone Sodium Succinate (Solu-MEDROL) 40 mg DAILY IVP 04/06/17 09:00 05/06/17 08:59 04/06/17 08:52 Morphine Sulfate (Morphine Sulfate) 2 mg Q4H PRN IVP severe pain 7-10 04/04/17 03:08 04/11/17 03:07 Nicotine (Nicoderm) 1 patch Q24H TDERMAL 04/04/17 16:00 05/03/17 15:59 04/05/17 17:25 Nitroglycerin (Ntg) 0.4 mg Q5M X 3 DOSES PRN SL Prn Chest Pain 04/04/17 02:30 05/03/17 06:29 Ondansetron HCl (Zofran) 4 mg Q6H PRN IVP Nausea & Vomiting 04/04/17 03:09 05/03/17 03:08 Promethazine HCl/ Codeine (Phenergan with Codeine) 5 ml Q6H PRN ORAL cough 04/04/17 03:09 05/04/17 03:08 Risperidone (RisperDAL) 4 mg BEDTIME ORAL 04/04/17 21:00 05/03/17 08:59 04/05/17 20:43 Temazepam (Restoril) 15 mg HSPRN PRN ORAL Insomnia 04/04/17 03:10 04/10/17 03:09 Theophylline (Sd-Dur) 100 mg EVERY 12 HOURS ORAL 04/04/17 09:00 05/03/17 08:59 04/06/17 08:52 CONRAD KRISHNA Apr 06, 2017 15:08
[2017-04-06 16:00] VITALS: BP 134/73
--- NOTE | 2017-04-06 16:02 | Internal Med Progress Note ---
Subjective Date of Service: Apr 06, 2017 Physician Name GriffithGorge Attending Physician Jamil Plascencia MD Current Medications Medications (Trade) Dose Ordered Sig/Luly Route PRN Reason Start Time Stop Time Status Last Admin Dose Admin Acetaminophen (Tylenol) 650 mg Q4H PRN ORAL fever 04/04/17 02:30 05/03/17 06:29 Albuterol/ Ipratropium (Albuterol/ Ipratropium) 3 ml Q4H PRN HHN dyspnea 04/04/17 03:07 04/09/17 03:06 Albuterol/ Ipratropium (Albuterol/ Ipratropium) 3 ml TIDRT HHN 04/04/17 07:00 04/08/17 18:59 04/06/17 11:44 Clonidine HCl (Catapres Tab) 0.1 mg Q4H PRN ORAL sbp more than 160 04/04/17 03:05 05/04/17 03:04 04/06/17 06:38 Clozapine (Clozaril) 75 mg QHS ORAL 04/04/17 21:00 04/10/17 20:59 04/05/17 20:42 Dextrose (Dextrose 50%) STAT PRN IV Hypoglycemia 04/04/17 03:06 05/03/17 03:05 Divalproex Sodium (Depakote) 1,000 mg QHS ORAL 04/04/17 21:00 05/03/17 20:59 04/05/17 20:43 Duloxetine HCl (Cymbalta) 30 mg DAILY ORAL 04/04/17 09:00 05/03/17 08:59 04/06/17 08:52 Famotidine (Pepcid) 20 mg ACBREAKFAST ORAL 04/04/17 06:30 05/03/17 06:29 04/06/17 06:38 Heparin Sodium (Porcine) (Heparin 5000 units/ml) 5,000 units EVERY 12 HOURS SUBQ 04/04/17 09:00 05/03/17 20:59 04/06/17 08:56 Insulin Aspart (NovoLOG) BEFORE MEALS AND HS SUBQ 04/04/17 06:30 05/03/17 06:29 04/05/17 17:24 Levofloxacin (Levaquin) 500 mg DAILY ORAL 04/04/17 09:00 04/10/17 15:59 04/06/17 08:58 Lorazepam (Ativan) 1 mg Q6H PRN ORAL For Anxiety 04/05/17 12:15 04/12/17 12:14 Morphine Sulfate (Morphine Sulfate) 2 mg Q4H PRN IVP severe pain 7-10 04/04/17 03:08 04/11/17 03:07 Nicotine (Nicoderm) 1 patch Q24H TDERMAL 04/04/17 16:00 05/03/17 15:59 04/05/17 17:25 Nitroglycerin (Ntg) 0.4 mg Q5M X 3 DOSES PRN SL Prn Chest Pain 04/04/17 02:30 05/03/17 06:29 Ondansetron HCl (Zofran) 4 mg Q6H PRN IVP Nausea & Vomiting 04/04/17 03:09 05/03/17 03:08 Prednisone (predniSONE) 40 mg DAILY ORAL 04/07/17 09:00 05/07/17 08:59 Promethazine HCl/ Codeine (Phenergan with Codeine) 5 ml Q6H PRN ORAL cough 04/04/17 03:09 05/04/17 03:08 Risperidone (RisperDAL) 4 mg BEDTIME ORAL 04/04/17 21:00 05/03/17 08:59 04/05/17 20:43 Temazepam (Restoril) 15 mg HSPRN PRN ORAL Insomnia 04/04/17 03:10 04/10/17 03:09 Theophylline (Sd-Dur) 100 mg EVERY 12 HOURS ORAL 04/04/17 09:00 05/03/17 08:59 04/06/17 08:52 Allergies: Coded Allergies: No Known Allergies (Verified Allergy, Unknown, 09/29/08) ROS Limited/Unobtainable: No Constitutional: Reports: no symptoms HEENT: Reports: no symptoms Cardiovascular: Reports: no symptoms Respiratory: Reports: shortness of breath Gastrointestinal/Abdominal: Reports: no symptoms Genitourinary: Reports: no symptoms Neurologic/Psychiatric: Reports: no symptoms Subjective 66 YO M admitted with shortness of breath. Now COPD exacerbation. Cover for Int [facility]-Dr Plascencia. Objective Last Vital Signs Date Time Temp Pulse Resp B/P (MAP) Pulse Ox O2 Delivery O2 Flow Rate FiO2 04/06/17 12:00 97.1 78 20 153/92 97 97.1 04/06/17 11:56 Nasal Cannula 2.0 28 Laboratory Tests Test 04/06/17 06:00 White Blood Count 11.1 K/UL (4.8-10.8) H Red Blood Count 4.86 M/UL (4.70-6.10) Hemoglobin 14.9 G/DL (14.2-18.0) Hematocrit 42.8 % (42.0-52.0) Mean Corpuscular Volume 88 FL (80-99) Mean Corpuscular Hemoglobin 30.7 PG (27.0-31.0) Mean Corpuscular Hemoglobin Concent 34.8 G/DL (32.0-36.0) Red Cell Distribution Width 13.1 % (11.6-14.8) Platelet Count 391 K/UL (150-450) Mean Platelet Volume 7.1 FL (6.5-10.1) Neutrophils (%) (Auto) 54.9 % (45.0-75.0) Lymphocytes (%) (Auto) 37.5 % (20.0-45.0) Monocytes (%) (Auto) 6.8 % (1.0-10.0) Eosinophils (%) (Auto) 0.1 % (0.0-3.0) Basophils (%) (Auto) 0.7 % (0.0-2.0) Sodium Level 136 MMOL/L (136-145) Potassium Level 3.9 MMOL/L (3.5-5.1) Chloride Level 99 MMOL/L (98-107) Carbon Dioxide Level 31 MMOL/L (21-32) Anion Gap 6 mmol/L (5-15) Blood Urea Nitrogen 21 mg/dL (7-18) H Creatinine 0.7 MG/DL (0.55-1.30) Estimat Glomerular Filtration Rate > 60 mL/min (>60) Glucose Level 94 MG/DL (74-106) Calcium Level 9.0 MG/DL (8.5-10.1) Phosphorus Level 4.0 MG/DL (2.5-4.9) Magnesium Level 1.8 MG/DL (1.8-2.4) Total Bilirubin 0.2 MG/DL (0.2-1.0) Aspartate Amino Transf (AST/SGOT) 11 U/L (15-37) L Alanine Aminotransferase (ALT/SGPT) 30 U/L (12-78) Alkaline Phosphatase 78 U/L (46-116) Total Protein 6.6 G/DL (6.4-8.2) Albumin 3.0 G/DL (3.4-5.0) L Globulin 3.6 g/dL Albumin/Globulin Ratio 0.8 (1.0-2.7) L Intake and Output 04/05/17 04/06/17 19:00 07:00 Intake Total 340 ml 500 ml Output Total 1500 ml Balance -1160 ml 500 ml Intake Oral 340 ml 500 ml Output Urine Total 1500 ml # Voids 2 3 Objective General Appearance: WD/WN, alert, mild distress EENT: PERRL/EOMI, normal ENT inspection Neck: non-tender, normal alignment, supple, normal inspection Cardiovascular: normal peripheral pulses, normal rate, regular rhythm, no gallop/murmur, no JVD Respiratory/Chest: respiratory distress, crackles/rales, rhonchi - bilaterally , expiratory wheezing Abdomen: normal bowel sounds, non tender, soft, no organomegaly, no mass Extremities: normal range of motion, non-tender Neurologic: chili pepper grinder II-XII grossly normal, no motor/sensory deficits Skin: normal pigmentation, warm/dry Assessment/Plan Problem List: (1) Hyponatremia Assessment & Plan: ?SIADH? Nephrology workup in progress. Continue norm saline IV (2) Obesity (3) Dyspnea (4) COPD exacerbation Assessment & Plan: Cont levaquin and solumedrol (5) HTN (hypertension) (6) Hypercholesterolemia (7) Diabetes mellitus Assessment & Plan: Uncontrolled due to IV solumedrol. Continue novolog sliding scale. (8) Cardiomegaly Assessment & Plan: see cardiology note. Await echocardiogram (9) Schizophrenia Assessment & Plan: See psych note. Continue depakote and clozaril Status: progressing Assessment/Plan Discharge planning: GORGE Sheridan Apr 06, 2017 16:02
--- NOTE | 2017-04-06 19:00 | General Progress Note ---
Assessment/Plan Status: stable, progressing Subjective Date patient seen: Apr 06, 2017 Neurologic/Psychiatric: Reports: anxiety, depressed, emotional problems Allergies: Coded Allergies: No Known Allergies (Verified Allergy, Unknown, 09/29/08) Objective Last 24 Hour Vital Signs Date Time Temp Pulse Resp B/P (MAP) Pulse Ox O2 Delivery O2 Flow Rate FiO2 04/06/17 16:00 97.4 78 18 134/73 90 97.4 04/06/17 12:00 97.1 78 20 153/92 97 97.1 04/06/17 11:56 76 18 98 Nasal Cannula 2.0 28 04/06/17 11:44 75 20 91 Room Air 04/06/17 08:00 97.3 92 20 142/71 92 97.3 04/06/17 07:16 96 20 95 Nasal Cannula 2.0 04/06/17 07:07 89 Room Air 04/06/17 07:07 94 18 89 Room Air 04/06/17 07:07 Nasal Cannula 04/06/17 06:38 160/89 04/06/17 04:00 97.4 81 20 160/89 93 Nasal Cannula 2.0 97.4 04/06/17 01:19 75 19 96 Facial 30 04/06/17 00:00 73 18 96 Facial 30 04/05/17 19:51 97.7 87 20 143/86 90 Room Air 97.7 04/05/17 19:24 88 22 97 Room Air 2.0 04/05/17 19:14 Nasal Cannula 21 04/05/17 19:14 92 Room Air 04/05/17 19:13 86 18 91 Room Air Intake and Output 04/05/17 04/06/17 19:00 07:00 Intake Total 340 ml 500 ml Output Total 1500 ml Balance -1160 ml 500 ml Intake Oral 340 ml 500 ml Output Urine Total 1500 ml # Voids 2 3 Laboratory Tests 04/06/17 06:00: White Blood Count 11.1H, Red Blood Count 4.86, Hemoglobin 14.9, Hematocrit 42.8 , Mean Corpuscular Volume 88, Mean Corpuscular Hemoglobin 30.7, Mean Corpuscular Hemoglobin Concent 34.8, Red Cell Distribution Width 13.1, Platelet Count 391, Mean Platelet Volume 7.1, Neutrophils (%) (Auto) 54.9, Lymphocytes (% ) (Auto) 37.5, Monocytes (%) (Auto) 6.8, Eosinophils (%) (Auto) 0.1, Basophils ( %) (Auto) 0.7, Sodium Level 136, Potassium Level 3.9, Chloride Level 99, Carbon Dioxide Level 31, Anion Gap 6, Blood Urea Nitrogen 21H, Creatinine 0.7, Estimat Glomerular Filtration Rate > 60, Glucose Level 94, Calcium Level 9.0, Phosphorus Level 4.0, Magnesium Level 1.8, Total Bilirubin 0.2, Aspartate Amino Transf (AST/SGOT) 11L, Alanine Aminotransferase (ALT/SGPT) 30, Alkaline Phosphatase 78, Total Protein 6.6, Albumin 3.0L, Globulin 3.6, Albumin/Globulin Ratio 0.8L Height (Feet): 6 Height (Inches): 1.00 Weight (Pounds): 259 General Appearance: no apparent distress, alert, confused, agitated Ayad Adhikari M.D. Apr 06, 2017 18:59
--- NOTE | 2017-04-06 19:36 | General Progress Note ---
Assessment/Plan Status: stable Subjective Date patient seen: Apr 05, 2017 Neurologic/Psychiatric: Reports: anxiety, emotional problems Allergies: Coded Allergies: No Known Allergies (Verified Allergy, Unknown, 09/29/08) Objective Last 24 Hour Vital Signs Date Time Temp Pulse Resp B/P (MAP) Pulse Ox O2 Delivery O2 Flow Rate FiO2 04/06/17 16:00 97.4 78 18 134/73 90 97.4 04/06/17 12:00 97.1 78 20 153/92 97 97.1 04/06/17 11:56 76 18 98 Nasal Cannula 2.0 28 04/06/17 11:44 75 20 91 Room Air 21 04/06/17 08:00 97.3 92 20 142/71 92 97.3 04/06/17 07:16 96 20 95 Nasal Cannula 2.0 04/06/17 07:07 89 Room Air 21 04/06/17 07:07 94 18 89 Room Air 04/06/17 07:07 Nasal Cannula 21 04/06/17 06:38 160/89 04/06/17 04:00 97.4 81 20 160/89 93 Nasal Cannula 2.0 97.4 04/06/17 01:19 75 19 96 Facial 30 04/06/17 00:00 73 18 96 Facial 30 04/05/17 19:51 97.7 87 20 143/86 90 Room Air 97.7 Intake and Output 04/05/17 04/06/17 19:00 07:00 Intake Total 340 ml 500 ml Output Total 1500 ml Balance -1160 ml 500 ml Intake Oral 340 ml 500 ml Output Urine Total 1500 ml # Voids 2 3 Laboratory Tests 04/06/17 06:00: White Blood Count 11.1H, Red Blood Count 4.86, Hemoglobin 14.9, Hematocrit 42.8 , Mean Corpuscular Volume 88, Mean Corpuscular Hemoglobin 30.7, Mean Corpuscular Hemoglobin Concent 34.8, Red Cell Distribution Width 13.1, Platelet Count 391, Mean Platelet Volume 7.1, Neutrophils (%) (Auto) 54.9, Lymphocytes (% ) (Auto) 37.5, Monocytes (%) (Auto) 6.8, Eosinophils (%) (Auto) 0.1, Basophils ( %) (Auto) 0.7, Sodium Level 136, Potassium Level 3.9, Chloride Level 99, Carbon Dioxide Level 31, Anion Gap 6, Blood Urea Nitrogen 21H, Creatinine 0.7, Estimat Glomerular Filtration Rate > 60, Glucose Level 94, Calcium Level 9.0, Phosphorus Level 4.0, Magnesium Level 1.8, Total Bilirubin 0.2, Aspartate Amino Transf (AST/SGOT) 11L, Alanine Aminotransferase (ALT/SGPT) 30, Alkaline Phosphatase 78, Total Protein 6.6, Albumin 3.0L, Globulin 3.6, Albumin/Globulin Ratio 0.8L Height (Feet): 6 Height (Inches): 1.00 Weight (Pounds): 259 General Appearance: no apparent distress, alert, confused, agitated EENT: VIRGILIO/Ayad Bunch M.D. Apr 06, 2017 19:35
[2017-04-06 20:00] VITALS: BP 144/83
[2017-04-06] MEDS: Depakote 500mg tab ORAL SCH (22:38)
[2017-04-07] VITALS: BP 137/88
[2017-04-07 04:00] VITALS: BP 149/79
[2017-04-07] MEDS: NovoLOG Insulin Flexpen SUBQ SCH ×4 (07:31→21:24)
[2017-04-07] MEDS: Albuterol/Ipratropium 3ml neb HHN SCH ×3 (07:36→20:07)
[2017-04-07 08:00] VITALS: BP 136/67
[2017-04-07 08:13] LABS: BASOPHILS % (AUTO) 0.6 % (0.0-2.0); HEMATOCRIT 43.9 % (42.0-52.0); HEMOGLOBIN 15.3 G/DL (14.2-18.0); LYMPHOCYTES % (AUTO) 23.1 % (20.0-45.0); MEAN CORPUSCULAR VOLUME 88 FL (80-99); MONOCYTES % (AUTO) 5.4 % (1.0-10.0); NEUTROPHILS % (AUTO) 70.9 % (45.0-75.0); PLATELET COUNT 381 K/UL (150-450); RED BLOOD COUNT 5.01 M/UL (4.70-6.10); RED CELL DISTRIBUTION WIDTH 12.8 % (11.6-14.8); WHITE BLOOD COUNT 10.5 K/UL (4.8-10.8)
[2017-04-07 08:40] LABS: ALANINE AMINOTRANSFERASE 31 U/L (12-78); ALBUMIN 3.4 G/DL (3.4-5.0); ALBUMIN/GLOBULIN RATIO 0.9 (1.0-2.7); ALKALINE PHOSPHATASE 88 U/L (46-116); ANION GAP 7 mmol/L (5-15); ASPARTATE AMINO TRANSFERASE 9 U/L (15-37); BILIRUBIN,TOTAL 0.4 MG/DL (0.2-1.0); BLOOD UREA NITROGEN 19 mg/dL (7-18); CALCIUM 9.4 MG/DL (8.5-10.1); CARBON DIOXIDE 31 MMOL/L (21-32); CHLORIDE 95 MMOL/L (98-107); CREATININE 0.7 MG/DL (0.55-1.30); PHOSPHORUS 4.9 MG/DL (2.5-4.9); POTASSIUM 4.2 MMOL/L (3.5-5.1); SODIUM 132 MMOL/L (136-145)
[2017-04-07] MEDS: Levofloxacin 500mg tab ORAL SCH (09:46)
[2017-04-07] MEDS: DULoxetine 30mg cap ORAL SCH (09:46)
[2017-04-07] MEDS: Theophylline ER 100mg ORAL SCH ×2 (09:46→21:21)
[2017-04-07] MEDS: Heparin 5000 units/ml inj SUBQ SCH ×2 (09:47→21:23)
[2017-04-07] MEDS ORDERED: PREDNISONE20 MG ORAL (09:58)
[2017-04-07] MEDS ORDERED: RISPERDAL2 MG ORAL (09:58)
[2017-04-07] MEDS ORDERED: LEVAQUIN500 MG ORAL (09:58)
--- NOTE | 2017-04-07 10:01 | Pulmonology Progress Note ---
Assessment/Plan Problems: (1) Respiratory failure (2) COPD exacerbation (3) Obstructive sleep apnea (4) Dyspnea (5) HTN (hypertension) (6) Schizophrenia (7) Diabetes mellitus Assessment/Plan improving respiratory treatment taper steroids, change to PO titrate fio2 psychiatry to se sliding scale dvt prophylaxis. dc home with oral abx and steroids prescription given Subjective Interval Events: doing better Constitutional: Reports: no symptoms HEENT: Repors: no symptoms Allergies: Coded Allergies: No Known Allergies (Verified Allergy, Unknown, 09/29/08) Objective Last 24 Hour Vital Signs Date Time Temp Pulse Resp B/P (MAP) Pulse Ox O2 Delivery O2 Flow Rate FiO2 04/07/17 08:00 98.0 96 20 136/67 91 98.0 04/07/17 07:46 85 18 98 Room Air 21 04/07/17 07:36 92 Room Air 21 04/07/17 07:36 Room Air 21 04/07/17 07:36 80 18 92 Room Air 21 04/07/17 04:00 97.9 82 20 149/79 94 Room Air 97.9 04/07/17 00:32 84 16 96 Facial 30 04/07/17 00:00 97.1 92 20 137/88 95 Bi-pap 97.1 04/06/17 23:30 80 20 97 Facial 30 04/06/17 22:30 82 17 94 Facial 30 04/06/17 20:00 97.2 80 18 144/83 97 Room Air 97.2 04/06/17 19:45 80 20 99 Room Air 21 04/06/17 19:30 76 20 94 Room Air 21 04/06/17 19:30 Room Air 21 04/06/17 19:30 94 Room Air 21 04/06/17 16:00 97.4 78 18 134/73 90 97.4 04/06/17 12:00 97.1 78 20 153/92 97 97.1 04/06/17 11:56 76 18 98 Nasal Cannula 2.0 28 04/06/17 11:44 75 20 91 Room Air 21 Intake and Output 04/06/17 04/07/17 19:00 07:00 Intake Total 940 ml 1440 ml Balance 940 ml 1440 ml Intake Oral 940 ml 1440 ml # Voids 5 2 Objective General Appearance: no apparent distress, alert, other - obese with flat affect awake, alert, responsive male in NAD Lines, tubes and drains: peripheral HEENT: normocephalic, atraumatic, anicteric Neck: non-tender, supple Respiratory/Chest: decreased breath sounds Cardiovascular/Chest: normal rate, regular rhythm - SR with PVC Abdomen: normal bowel sounds, non tender - obese , soft Neurologic: no motor/sensory deficits, alert, responsive Musculoskeletal: normal muscle bulk Laboratory Tests 04/07/17 06:02: White Blood Count 10.5, Red Blood Count 5.01, Hemoglobin 15.3, Hematocrit 43.9, Mean Corpuscular Volume 88, Mean Corpuscular Hemoglobin 30.6, Mean Corpuscular Hemoglobin Concent 34.9, Red Cell Distribution Width 12.8, Platelet Count 381, Mean Platelet Volume 6.9, Neutrophils (%) (Auto) 70.9, Lymphocytes (%) (Auto) 23.1, Monocytes (%) (Auto) 5.4, Eosinophils (%) (Auto) 0.0, Basophils (%) (Auto ) 0.6, Erythrocyte Sedimentation Rate [Pending], Sodium Level 132L, Potassium Level 4.2, Chloride Level 95L, Carbon Dioxide Level 31, Anion Gap 7, Blood Urea Nitrogen 19H, Creatinine 0.7, Estimat Glomerular Filtration Rate > 60, Glucose Level 95, Calcium Level 9.4, Phosphorus Level 4.9, Magnesium Level 2.1, Total Bilirubin 0.4, Aspartate Amino Transf (AST/SGOT) 9L, Alanine Aminotransferase ( ALT/SGPT) 31, Alkaline Phosphatase 88, Total Protein 7.3, Albumin 3.4, Globulin 3.9, Albumin/Globulin Ratio 0.9L Current Medications Medications (Trade) Dose Ordered Sig/Luly Route PRN Reason Start Time Stop Time Status Last Admin Dose Admin Acetaminophen (Tylenol) 650 mg Q4H PRN ORAL fever 04/04/17 02:30 05/03/17 06:29 Albuterol/ Ipratropium (Albuterol/ Ipratropium) 3 ml Q4H PRN HHN dyspnea 04/04/17 03:07 04/09/17 03:06 Albuterol/ Ipratropium (Albuterol/ Ipratropium) 3 ml TIDRT HHN 04/04/17 07:00 04/08/17 18:59 04/07/17 07:36 Clonidine HCl (Catapres Tab) 0.1 mg Q4H PRN ORAL sbp more than 160 04/04/17 03:05 05/04/17 03:04 04/06/17 06:38 Clozapine (Clozaril) 75 mg QHS ORAL 04/04/17 21:00 04/10/17 20:59 04/06/17 22:37 Dextrose (Dextrose 50%) STAT PRN IV Hypoglycemia 04/04/17 03:06 05/03/17 03:05 Divalproex Sodium (Depakote) 1,000 mg QHS ORAL 04/04/17 21:00 05/03/17 20:59 04/06/17 22:38 Duloxetine HCl (Cymbalta) 30 mg DAILY ORAL 04/04/17 09:00 05/03/17 08:59 04/07/17 09:46 Famotidine (Pepcid) 20 mg ACBREAKFAST ORAL 04/04/17 06:30 05/03/17 06:29 04/07/17 07:00 Heparin Sodium (Porcine) (Heparin 5000 units/ml) 5,000 units EVERY 12 HOURS SUBQ 04/04/17 09:00 05/03/17 20:59 04/07/17 09:47 Insulin Aspart (NovoLOG) BEFORE MEALS AND HS SUBQ 04/04/17 06:30 05/03/17 06:29 04/07/17 07:31 Levofloxacin (Levaquin) 500 mg DAILY ORAL 04/04/17 09:00 04/10/17 15:59 04/07/17 09:46 Lorazepam (Ativan) 1 mg Q6H PRN ORAL For Anxiety 04/05/17 12:15 04/12/17 12:14 Morphine Sulfate (Morphine Sulfate) 2 mg Q4H PRN IVP severe pain 7-10 04/04/17 03:08 04/11/17 03:07 Nicotine (Nicoderm) 1 patch Q24H TDERMAL 04/04/17 16:00 05/03/17 15:59 04/06/17 17:08 Nitroglycerin (Ntg) 0.4 mg Q5M X 3 DOSES PRN SL Prn Chest Pain 04/04/17 02:30 05/03/17 06:29 Ondansetron HCl (Zofran) 4 mg Q6H PRN IVP Nausea & Vomiting 04/04/17 03:09 05/03/17 03:08 Prednisone (predniSONE) 40 mg DAILY ORAL 04/07/17 09:00 05/07/17 08:59 04/07/17 09:46 Promethazine HCl/ Codeine (Phenergan with Codeine) 5 ml Q6H PRN ORAL cough 04/04/17 03:09 05/04/17 03:08 Risperidone (RisperDAL) 4 mg BEDTIME ORAL 04/04/17 21:00 05/03/17 08:59 04/06/17 22:37 Temazepam (Restoril) 15 mg HSPRN PRN ORAL Insomnia 04/04/17 03:10 04/10/17 03:09 Theophylline (Sd-Dur) 100 mg EVERY 12 HOURS ORAL 04/04/17 09:00 05/03/17 08:59 04/07/17 09:46 CONRAD KRISHNA Apr 07, 2017 10:00
--- NOTE | 2017-04-07 11:08 | Cardiology Progress Note ---
Assessment/Plan Problem List: (1) COPD (chronic obstructive pulmonary disease) (2) Dyspnea (3) Diabetes mellitus (4) Cardiomegaly (5) Hypercholesterolemia (6) HTN (hypertension) (7) Schizophrenia Status: stable, progressing Status Narrative COPD exacerbation - improving clinically HTN hx of hyperlipidemia Assessment/Plan Will restart losartan for BP Statin for HLD and will check lipid panel in am COPD management per pulmonary - Pt currently on steroids ( IV changed to oral prednisone) , antibiotics, and bronchodilators Subjective ROS Limited/Unobtainable: No Subjective Pt alert, no c/o dyspnea or pain Objective Last 24 Hour Vital Signs Date Time Temp Pulse Resp B/P (MAP) Pulse Ox O2 Delivery O2 Flow Rate FiO2 04/07/17 08:00 98.0 96 20 136/67 91 98.0 04/07/17 07:46 85 18 98 Room Air 04/07/17 07:36 92 Room Air 04/07/17 07:36 Room Air 04/07/17 07:36 80 18 92 Room Air 04/07/17 04:00 97.9 82 20 149/79 94 Room Air 97.9 04/07/17 00:32 84 16 96 Facial 30 04/07/17 00:00 97.1 92 20 137/88 95 Bi-pap 97.1 04/06/17 23:30 80 20 97 Facial 30 04/06/17 22:30 82 17 94 Facial 30 04/06/17 20:00 97.2 80 18 144/83 97 Room Air 97.2 04/06/17 19:45 80 20 99 Room Air 04/06/17 19:30 76 20 94 Room Air 04/06/17 19:30 Room Air 21 04/06/17 19:30 94 Room Air 04/06/17 16:00 97.4 78 18 134/73 90 97.4 04/06/17 12:00 97.1 78 20 153/92 97 97.1 04/06/17 11:56 76 18 98 Nasal Cannula 2.0 28 04/06/17 11:44 75 20 91 Room Air 21 General Appearance: WD/WN, no apparent distress, alert EENT: PERRL/EOMI Neck: supple, no JVD Rhythm: NSR Cardiovascular: normal rate, regular rhythm, no gallop/murmur Respiratory/Chest: no respiratory distress, no accessory muscle use, other - dec BS bilat Abdomen: non tender, soft Extremities: non-tender, no swelling Intake and Output 04/06/17 04/07/17 19:00 07:00 Intake Total 940 ml 1440 ml Balance 940 ml 1440 ml Intake Oral 940 ml 1440 ml # Voids 5 2 Laboratory Tests Test 04/07/17 06:02 White Blood Count 10.5 K/UL (4.8-10.8) Red Blood Count 5.01 M/UL (4.70-6.10) Hemoglobin 15.3 G/DL (14.2-18.0) Hematocrit 43.9 % (42.0-52.0) Mean Corpuscular Volume 88 FL (80-99) Mean Corpuscular Hemoglobin 30.6 PG (27.0-31.0) Mean Corpuscular Hemoglobin Concent 34.9 G/DL (32.0-36.0) Red Cell Distribution Width 12.8 % (11.6-14.8) Platelet Count 381 K/UL (150-450) Mean Platelet Volume 6.9 FL (6.5-10.1) Neutrophils (%) (Auto) 70.9 % (45.0-75.0) Lymphocytes (%) (Auto) 23.1 % (20.0-45.0) Monocytes (%) (Auto) 5.4 % (1.0-10.0) Eosinophils (%) (Auto) 0.0 % (0.0-3.0) Basophils (%) (Auto) 0.6 % (0.0-2.0) Erythrocyte Sedimentation Rate 13 MM/HR (0-20) Sodium Level 132 MMOL/L (136-145) L Potassium Level 4.2 MMOL/L (3.5-5.1) Chloride Level 95 MMOL/L (98-107) L Carbon Dioxide Level 31 MMOL/L (21-32) Anion Gap 7 mmol/L (5-15) Blood Urea Nitrogen 19 mg/dL (7-18) H Creatinine 0.7 MG/DL (0.55-1.30) Estimat Glomerular Filtration Rate > 60 mL/min (>60) Glucose Level 95 MG/DL (74-106) Calcium Level 9.4 MG/DL (8.5-10.1) Phosphorus Level 4.9 MG/DL (2.5-4.9) Magnesium Level 2.1 MG/DL (1.8-2.4) Total Bilirubin 0.4 MG/DL (0.2-1.0) Aspartate Amino Transf (AST/SGOT) 9 U/L (15-37) L Alanine Aminotransferase (ALT/SGPT) 31 U/L (12-78) Alkaline Phosphatase 88 U/L (46-116) Total Protein 7.3 G/DL (6.4-8.2) Albumin 3.4 G/DL (3.4-5.0) Globulin 3.9 g/dL Albumin/Globulin Ratio 0.9 (1.0-2.7) USAMA MACKENZIE Apr 07, 2017 11:08
[2017-04-07 11:38] LABS: CHOLESTEROL 202 MG/DL (< 200); HDL CHOLESTEROL 99 MG/DL (40-60); TRIGLYCERIDES 88 MG/DL (30-150)
[2017-04-07 12:00] VITALS: BP 133/80
[2017-04-07] MEDS ORDERED: Milk of Magnesia 30ml Ud ORAL ONE (12:30)
--- NOTE | 2017-04-07 13:49 | Internal Med Progress Note ---
Subjective Date of Service: Apr 07, 2017 Physician Name Gorge Rodas Attending Physician Jamil Plascencia MD Current Medications Medications (Trade) Dose Ordered Sig/Luly Route PRN Reason Start Time Stop Time Status Last Admin Dose Admin Acetaminophen (Tylenol) 650 mg Q4H PRN ORAL fever 04/04/17 02:30 05/03/17 06:29 Albuterol/ Ipratropium (Albuterol/ Ipratropium) 3 ml Q4H PRN HHN dyspnea 04/04/17 03:07 04/09/17 03:06 Albuterol/ Ipratropium (Albuterol/ Ipratropium) 3 ml TIDRT HHN 04/04/17 07:00 04/08/17 18:59 04/07/17 12:50 Atorvastatin Calcium (Lipitor) 10 mg BEDTIME ORAL 04/07/17 21:00 05/07/17 20:59 Clonidine HCl (Catapres Tab) 0.1 mg Q4H PRN ORAL sbp more than 160 04/04/17 03:05 05/04/17 03:04 04/06/17 06:38 Clozapine (Clozaril) 75 mg QHS ORAL 04/04/17 21:00 04/10/17 20:59 04/06/17 22:37 Dextrose (Dextrose 50%) STAT PRN IV Hypoglycemia 04/04/17 03:06 05/03/17 03:05 Divalproex Sodium (Depakote) 1,000 mg QHS ORAL 04/04/17 21:00 05/03/17 20:59 04/06/17 22:38 Duloxetine HCl (Cymbalta) 30 mg DAILY ORAL 04/04/17 09:00 05/03/17 08:59 04/07/17 09:46 Famotidine (Pepcid) 20 mg ACBREAKFAST ORAL 04/04/17 06:30 05/03/17 06:29 04/07/17 07:00 Heparin Sodium (Porcine) (Heparin 5000 units/ml) 5,000 units EVERY 12 HOURS SUBQ 04/04/17 09:00 05/03/17 20:59 04/07/17 09:47 Insulin Aspart (NovoLOG) BEFORE MEALS AND HS SUBQ 04/04/17 06:30 05/03/17 06:29 04/07/17 12:56 Levofloxacin (Levaquin) 500 mg DAILY ORAL 04/04/17 09:00 04/10/17 15:59 04/07/17 09:46 Lorazepam (Ativan) 1 mg Q6H PRN ORAL For Anxiety 04/05/17 12:15 04/12/17 12:14 Losartan Potassium (Cozaar) 25 mg DAILY ORAL 04/08/17 09:00 05/08/17 08:59 Morphine Sulfate (Morphine Sulfate) 2 mg Q4H PRN IVP severe pain 7-10 04/04/17 03:08 04/11/17 03:07 Nicotine (Nicoderm) 1 patch Q24H TDERMAL 04/04/17 16:00 05/03/17 15:59 04/06/17 17:08 Nitroglycerin (Ntg) 0.4 mg Q5M X 3 DOSES PRN SL Prn Chest Pain 04/04/17 02:30 05/03/17 06:29 Ondansetron HCl (Zofran) 4 mg Q6H PRN IVP Nausea & Vomiting 04/04/17 03:09 05/03/17 03:08 Prednisone (predniSONE) 40 mg DAILY ORAL 04/07/17 09:00 05/07/17 08:59 04/07/17 09:46 Promethazine HCl/ Codeine (Phenergan with Codeine) 5 ml Q6H PRN ORAL cough 04/04/17 03:09 05/04/17 03:08 Risperidone (RisperDAL) 4 mg BEDTIME ORAL 04/04/17 21:00 05/03/17 08:59 04/06/17 22:37 Temazepam (Restoril) 15 mg HSPRN PRN ORAL Insomnia 04/04/17 03:10 04/10/17 03:09 Theophylline (Sd-Dur) 100 mg EVERY 12 HOURS ORAL 04/04/17 09:00 05/03/17 08:59 04/07/17 09:46 Allergies: Coded Allergies: No Known Allergies (Verified Allergy, Unknown, 09/29/08) ROS Limited/Unobtainable: No Constitutional: Reports: no symptoms HEENT: Reports: no symptoms Cardiovascular: Reports: no symptoms Respiratory: Reports: no symptoms Gastrointestinal/Abdominal: Reports: no symptoms Genitourinary: Reports: no symptoms Neurologic/Psychiatric: Reports: no symptoms Subjective 66 YO M admitted with shortness of breath. Now COPD exacerbation. Cover for Int Med-Dr Plascencia.. Await discharge to [facility] Objective Last Vital Signs Date Time Temp Pulse Resp B/P (MAP) Pulse Ox O2 Delivery O2 Flow Rate FiO2 04/07/17 13:00 87 18 98 Room Air 21 04/07/17 12:00 97.7 133/80 97.7 04/06/17 11:56 2.0 Laboratory Tests Test 04/07/17 06:02 White Blood Count 10.5 K/UL (4.8-10.8) Red Blood Count 5.01 M/UL (4.70-6.10) Hemoglobin 15.3 G/DL (14.2-18.0) Hematocrit 43.9 % (42.0-52.0) Mean Corpuscular Volume 88 FL (80-99) Mean Corpuscular Hemoglobin 30.6 PG (27.0-31.0) Mean Corpuscular Hemoglobin Concent 34.9 G/DL (32.0-36.0) Red Cell Distribution Width 12.8 % (11.6-14.8) Platelet Count 381 K/UL (150-450) Mean Platelet Volume 6.9 FL (6.5-10.1) Neutrophils (%) (Auto) 70.9 % (45.0-75.0) Lymphocytes (%) (Auto) 23.1 % (20.0-45.0) Monocytes (%) (Auto) 5.4 % (1.0-10.0) Eosinophils (%) (Auto) 0.0 % (0.0-3.0) Basophils (%) (Auto) 0.6 % (0.0-2.0) Erythrocyte Sedimentation Rate 13 MM/HR (0-20) Sodium Level 132 MMOL/L (136-145) L Potassium Level 4.2 MMOL/L (3.5-5.1) Chloride Level 95 MMOL/L (98-107) L Carbon Dioxide Level 31 MMOL/L (21-32) Anion Gap 7 mmol/L (5-15) Blood Urea Nitrogen 19 mg/dL (7-18) H Creatinine 0.7 MG/DL (0.55-1.30) Estimat Glomerular Filtration Rate > 60 mL/min (>60) Glucose Level 95 MG/DL (74-106) Calcium Level 9.4 MG/DL (8.5-10.1) Phosphorus Level 4.9 MG/DL (2.5-4.9) Magnesium Level 2.1 MG/DL (1.8-2.4) Total Bilirubin 0.4 MG/DL (0.2-1.0) Aspartate Amino Transf (AST/SGOT) 9 U/L (15-37) L Alanine Aminotransferase (ALT/SGPT) 31 U/L (12-78) Alkaline Phosphatase 88 U/L (46-116) Total Protein 7.3 G/DL (6.4-8.2) Albumin 3.4 G/DL (3.4-5.0) Globulin 3.9 g/dL Albumin/Globulin Ratio 0.9 (1.0-2.7) L Triglycerides Level 88 MG/DL (30-150) Cholesterol Level 202 MG/DL (< 200) H LDL Cholesterol 86 mg/dL (<100) HDL Cholesterol 99 MG/DL (40-60) H Cholesterol/HDL Ratio 2.0 (3.3-4.4) L Intake and Output 04/06/17 04/07/17 19:00 07:00 Intake Total 940 ml 1440 ml Balance 940 ml 1440 ml Intake Oral 940 ml 1440 ml # Voids 5 2 Objective General Appearance: WD/WN, alert, mild distress EENT: PERRL/EOMI, normal ENT inspection Neck: non-tender, normal alignment, supple, normal inspection Cardiovascular: normal peripheral pulses, normal rate, regular rhythm, no gallop/murmur, no JVD Respiratory/Chest: respiratory distress, crackles/rales, rhonchi - bilaterally , expiratory wheezing Abdomen: normal bowel sounds, non tender, soft, no organomegaly, no mass Extremities: normal range of motion, non-tender 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 See Nephrology. Continue norm saline IV (2) Obesity (3) Dyspnea (4) COPD exacerbation Assessment & Plan: Cont levaquin. S/C IV solumedrol; start oral prednisone. (5) HTN (hypertension) (6) Hypercholesterolemia (7) Diabetes mellitus Assessment & Plan: Continue novolog sliding scale. (8) Cardiomegaly Assessment & Plan: see cardiology note. Await echocardiogram (9) Schizophrenia Assessment & Plan: See psych note. Continue depakote and clozaril Assessment/Plan Discharge to [facility] today GORGE RODAS Apr 07, 2017 13:49
[2017-04-07 16:00] VITALS: BP 139/76
[2017-04-07] MEDS ORDERED: Magnesium Citrate Liq Btl ORAL ONE (16:00)
[2017-04-07 19:47] VITALS: BP 121/64
[2017-04-07] MEDS: Depakote 500mg tab ORAL SCH (21:22)
[2017-04-08] VITALS: BP 121/64
[2017-04-08 04:00] VITALS: BP 118/75
[2017-04-08] MEDS: NovoLOG Insulin Flexpen SUBQ SCH ×2 (06:05→11:30)
[2017-04-08] MEDS: Albuterol/Ipratropium 3ml neb HHN SCH ×2 (07:16→13:56)
[2017-04-08 08:15] VITALS: BP 131/61
[2017-04-08] MEDS: Levofloxacin 500mg tab ORAL SCH (08:54)
[2017-04-08] MEDS: Theophylline ER 100mg ORAL SCH (08:54)
[2017-04-08] MEDS: DULoxetine 30mg cap ORAL SCH (08:54)
[2017-04-08] MEDS: Heparin 5000 units/ml inj SUBQ SCH (08:55)
[2017-04-08] MEDS ORDERED: Losartan 25mg tab ORAL SCH (09:00)
[2017-04-08] MEDS ORDERED: Fleet's Enema 133ml RECTAL ONE (10:00)
[2017-04-08 12:00] VITALS: BP 137/77
--- NOTE | 2017-04-08 13:04 | Cardiology Progress Note ---
Assessment/Plan Problem List: (1) COPD (chronic obstructive pulmonary disease) (2) Dyspnea (3) Diabetes mellitus (4) Cardiomegaly (5) Hypercholesterolemia (6) HTN (hypertension) (7) Schizophrenia Status: stable, progressing Status Narrative COPD exacerbation - improving clinically. HTN - BP improved w/ losartan Hyperlipidemia type II DM Assessment/Plan Will restart losartan for BP Statin for HLD (was on simvastatin as outpt; on atorvastatin currently) COPD management per pulmonary - Pt currently on steroids ( IV changed to oral prednisone) , oral levaquin and bronchodilators Dc plan per primary team. Subjective ROS Limited/Unobtainable: No Subjective Pt alert, no c/o Objective Last 24 Hour Vital Signs Date Time Temp Pulse Resp B/P (MAP) Pulse Ox O2 Delivery O2 Flow Rate FiO2 04/08/17 08:54 131/61 04/08/17 08:15 97.0 84 20 131/61 93 Room Air 97.0 04/08/17 07:21 76 18 98 Room Air 21 04/08/17 07:18 Room Air 04/08/17 07:18 73 18 94 Room Air 21 04/08/17 07:18 94 Room Air 21 04/08/17 04:00 97.0 73 21 118/75 91 97.0 04/08/17 01:52 72 20 95 Facial 28 04/08/17 00:00 97.0 68 20 121/64 90 Room Air 97.0 04/07/17 20:20 82 18 94 Room Air 21 04/07/17 20:09 Room Air 21 04/07/17 20:09 90 Room Air 21 04/07/17 20:08 81 18 90 Room Air 21 04/07/17 19:47 97.4 84 20 121/64 90 Room Air 97.4 04/07/17 16:00 97.3 76 20 139/76 91 97.3 04/07/17 13:00 87 18 98 Room Air 21 General Appearance: WD/WN, no apparent distress, alert EENT: PERRL/EOMI Neck: supple, no JVD Rhythm: NSR Cardiovascular: normal rate, regular rhythm, systolic murmur - i/vi TAHMINA along LSB Respiratory/Chest: lungs clear, normal breath sounds, no respiratory distress Abdomen: non tender, soft Extremities: no swelling Intake and Output 04/07/17 04/08/17 19:00 07:00 Intake Total 240 ml Balance 240 ml Intake Oral 240 ml # Voids 4 USAMA BLACK Apr 08, 2017 13:04
--- NOTE | 2017-04-08 13:53 | Cardiology Report ---
APPROVED REPORT EXAM: Three-dimensional, Two-dimensional and M-mode echocardiogram with Doppler and color Doppler. INDICATION CARDIOMYOPATHY M-Mode DIMENSIONS IVSd2.0 (0.7-1.1cm)Left Atrium (MM)4.5 (1.6-4.0cm) LVDd4.5 (3.5-5.6cm)Aortic Root3.6 (2.0-3.7cm) PWd1.2 (0.7-1.1cm)Aortic Cusp Exc.2.6 (1.5-2.0cm) IVSs2.7 cm LVDs2.7 (2.5-4.0cm) PWs1.8 cm Technically difficult study due to poor acoustical windows and pt moving. Normal left ventricular chamber size, systolic function and wall motion to extent visualized. Left ventricular ejection fraction estimated to be 65-70 %. No evidence of left ventricular hypertrophy. No evidence of pericardial effusion. All other cardiac chamber sizes are within normal. Focal aortic valve sclerosis with adequate cusp excursion. Thickened mitral valve leaflets with normal excursion. Mitral annulus and aortic root calcification. Pulmonic valve not well visualized. Normal tricuspid valve structure. IVC dilated at 2.6 cm without physiologic collapse suggestive of increased RA pressure. A color flow and spectral Doppler study was performed and revealed: No aortic regurgitation. Trace mitral regurgitation. Normal left ventricular diastolic function . Mild tricuspid regurgitation. Tricuspid systolic velocities suggests peak right ventricular systolic pressure of 40 mmHg,consistent with mild pulmonary hypertension. No pulmonic regurgitation present.
--- NOTE | 2017-04-08 14:55 | Internal Med Progress Note ---
Subjective Date of Service: Apr 08, 2017 Physician Name Rodas,Gorge Attending Physician Jamil Plascencia MD Current Medications Medications (Trade) Dose Ordered Sig/Luly Route PRN Reason Start Time Stop Time Status Last Admin Dose Admin Acetaminophen (Tylenol) 650 mg Q4H PRN ORAL fever 04/04/17 02:30 05/03/17 06:29 Albuterol/ Ipratropium (Albuterol/ Ipratropium) 3 ml Q4H PRN HHN dyspnea 04/04/17 03:07 04/09/17 03:06 Albuterol/ Ipratropium (Albuterol/ Ipratropium) 3 ml TIDRT HHN 04/04/17 07:00 04/08/17 18:59 04/08/17 13:56 Atorvastatin Calcium (Lipitor) 10 mg BEDTIME ORAL 04/07/17 21:00 05/07/17 20:59 04/07/17 21:21 Clonidine HCl (Catapres Tab) 0.1 mg Q4H PRN ORAL sbp more than 160 04/04/17 03:05 05/04/17 03:04 04/06/17 06:38 Clozapine (Clozaril) 75 mg QHS ORAL 04/04/17 21:00 04/10/17 20:59 04/07/17 21:22 Dextrose (Dextrose 50%) STAT PRN IV Hypoglycemia 04/04/17 03:06 05/03/17 03:05 Divalproex Sodium (Depakote) 1,000 mg QHS ORAL 04/04/17 21:00 05/03/17 20:59 04/07/17 21:22 Duloxetine HCl (Cymbalta) 30 mg DAILY ORAL 04/04/17 09:00 05/03/17 08:59 04/08/17 08:54 Famotidine (Pepcid) 20 mg ACBREAKFAST ORAL 04/04/17 06:30 05/03/17 06:29 04/08/17 06:04 Heparin Sodium (Porcine) (Heparin 5000 units/ml) 5,000 units EVERY 12 HOURS SUBQ 04/04/17 09:00 05/03/17 20:59 04/08/17 08:55 Insulin Aspart (NovoLOG) BEFORE MEALS AND HS SUBQ 04/04/17 06:30 05/03/17 06:29 04/08/17 06:05 Levofloxacin (Levaquin) 500 mg DAILY ORAL 04/04/17 09:00 04/10/17 15:59 04/08/17 08:54 Lorazepam (Ativan) 1 mg Q6H PRN ORAL For Anxiety 04/05/17 12:15 04/12/17 12:14 Losartan Potassium (Cozaar) 25 mg DAILY ORAL 04/08/17 09:00 05/08/17 08:59 04/08/17 08:54 Morphine Sulfate (Morphine Sulfate) 2 mg Q4H PRN IVP severe pain 7-10 04/04/17 03:08 04/11/17 03:07 Nicotine (Nicoderm) 1 patch Q24H TDERMAL 04/04/17 16:00 05/03/17 15:59 04/07/17 17:43 Nitroglycerin (Ntg) 0.4 mg Q5M X 3 DOSES PRN SL Prn Chest Pain 04/04/17 02:30 05/03/17 06:29 Ondansetron HCl (Zofran) 4 mg Q6H PRN IVP Nausea & Vomiting 04/04/17 03:09 05/03/17 03:08 Prednisone (predniSONE) 40 mg DAILY ORAL 04/07/17 09:00 05/07/17 08:59 04/08/17 08:54 Promethazine HCl/ Codeine (Phenergan with Codeine) 5 ml Q6H PRN ORAL cough 04/04/17 03:09 05/04/17 03:08 Risperidone (RisperDAL) 4 mg BEDTIME ORAL 04/04/17 21:00 05/03/17 08:59 04/07/17 21:21 Temazepam (Restoril) 15 mg HSPRN PRN ORAL Insomnia 04/04/17 03:10 04/10/17 03:09 Theophylline (Sd-Dur) 100 mg EVERY 12 HOURS ORAL 04/04/17 09:00 05/03/17 08:59 04/08/17 08:54 Allergies: Coded Allergies: No Known Allergies (Verified Allergy, Unknown, 09/29/08) ROS Limited/Unobtainable: No Constitutional: Reports: no symptoms HEENT: Reports: no symptoms Cardiovascular: Reports: no symptoms Respiratory: Reports: shortness of breath Gastrointestinal/Abdominal: Reports: no symptoms Genitourinary: Reports: no symptoms Neurologic/Psychiatric: Reports: no symptoms Subjective 66 YO M admitted with shortness of breath. Now COPD exacerbation. Cover for Int Med-Dr Plascencia.. Discharge to [facility] held yesterday because "Patient has not had a bowel movement". Patient S/P magnesium citrate with BM Objective Last Vital Signs Date Time Temp Pulse Resp B/P (MAP) Pulse Ox O2 Delivery O2 Flow Rate FiO2 04/08/17 13:57 81 18 97 Room Air 21 04/08/17 12:00 97.2 137/77 97.2 04/06/17 11:56 2.0 Intake and Output 04/07/17 04/08/17 19:00 07:00 Intake Total 240 ml Balance 240 ml Intake Oral 240 ml # Voids 4 Objective General Appearance: WD/WN, alert, mild distress EENT: PERRL/EOMI, normal ENT inspection Neck: non-tender, normal alignment, supple, normal inspection Cardiovascular: normal peripheral pulses, normal rate, regular rhythm, no gallop/murmur, no JVD Respiratory/Chest: respiratory distress, crackles/rales, rhonchi - bilaterally , expiratory wheezing Abdomen: normal bowel sounds, non tender, soft, no organomegaly, no mass Extremities: normal range of motion, non-tender 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 See Nephrology. Continue norm saline IV (2) Obesity (3) Dyspnea (4) COPD exacerbation Assessment & Plan: Cont levaquin. S/C IV solumedrol; start oral prednisone. (5) HTN (hypertension) (6) Hypercholesterolemia (7) Diabetes mellitus Assessment & Plan: Continue novolog sliding scale. (8) Cardiomegaly Assessment & Plan: see cardiology note. Await echocardiogram (9) Schizophrenia Assessment & Plan: See psych note. Continue depakote and clozaril (10) Constipation Assessment & Plan: Resolved with magnesium citrate Status: stable Assessment/Plan Discharge to [facility] today GORGE RODAS Apr 08, 2017 14:55
--- NOTE | 2017-04-08 17:38 | Pulmonology Progress Note ---
Assessment/Plan Problems: (1) Respiratory failure (2) COPD exacerbation (3) Obstructive sleep apnea (4) Dyspnea (5) HTN (hypertension) (6) Schizophrenia (7) Diabetes mellitus Assessment/Plan improving respiratory treatment taper steroids, change to PO titrate fio2 psychiatry to se sliding scale dvt prophylaxis. dc home with oral abx and steroids prescription given dc home now Subjective Interval Events: feeling better Allergies: Coded Allergies: No Known Allergies (Verified Allergy, Unknown, 09/29/08) Objective Last 24 Hour Vital Signs Date Time Temp Pulse Resp B/P (MAP) Pulse Ox O2 Delivery O2 Flow Rate FiO2 04/08/17 13:57 81 18 97 Room Air 21 04/08/17 13:52 80 18 93 Room Air 21 04/08/17 12:00 97.2 79 20 137/77 94 97.2 04/08/17 08:54 131/61 04/08/17 08:15 97.0 84 20 131/61 93 Room Air 97.0 04/08/17 07:21 76 18 98 Room Air 21 04/08/17 07:18 Room Air 21 04/08/17 07:18 73 18 94 Room Air 21 04/08/17 07:18 94 Room Air 21 04/08/17 04:00 97.0 73 21 118/75 91 97.0 04/08/17 01:52 72 20 95 Facial 28 04/08/17 00:00 97.0 68 20 121/64 90 Room Air 97.0 04/07/17 20:20 82 18 94 Room Air 04/07/17 20:09 Room Air 04/07/17 20:09 90 Room Air 04/07/17 20:08 81 18 90 Room Air 04/07/17 19:47 97.4 84 20 121/64 90 Room Air 97.4 Intake and Output 04/07/17 04/08/17 19:00 07:00 Intake Total 240 ml Balance 240 ml Intake Oral 240 ml # Voids 4 Objective General Appearance: no apparent distress, alert, other - obese with flat affect awake, alert, responsive male in NAD Lines, tubes and drains: peripheral HEENT: normocephalic, atraumatic, anicteric Neck: non-tender, supple Respiratory/Chest: decreased breath sounds Cardiovascular/Chest: normal rate, regular rhythm - SR with PVC Abdomen: normal bowel sounds, non tender - obese , soft Neurologic: no motor/sensory deficits, alert, responsive Musculoskeletal: normal muscle bulk CONRAD KRISHNA Apr 08, 2017 17:38
--- NOTE | 2017-04-09 10:53 | General Progress Note ---
Assessment/Plan Status: stable, progressing Status Narrative Encephalopathy, dementia, and agitation. PLAN: We will continue current medications. Subjective Date patient seen: Apr 07, 2017 Neurologic/Psychiatric: Reports: anxiety, depressed, emotional problems Allergies: Coded Allergies: No Known Allergies (Verified Allergy, Unknown, 09/29/08) Objective Last 24 Hour Vital Signs Date Time Temp Pulse Resp B/P (MAP) Pulse Ox O2 Delivery O2 Flow Rate FiO2 04/08/17 13:57 81 18 97 Room Air 21 04/08/17 13:52 80 18 93 Room Air 21 04/08/17 12:00 97.2 79 20 137/77 94 97.2 Height (Feet): 6 Height (Inches): 1.00 Weight (Pounds): 259 General Appearance: no apparent distress, alert, confused, agitated Ayad Adhikari M.D. Apr 09, 2017 10:53
--- NOTE | 2017-04-09 10:55 | General Progress Note ---
Assessment/Plan Status: stable Assessment/Plan Encephalopathy, dementia, and agitation. PLAN: We will continue current medications. Subjective Date patient seen: Apr 08, 2017 Neurologic/Psychiatric: Reports: anxiety, depressed, emotional problems Allergies: Coded Allergies: No Known Allergies (Verified Allergy, Unknown, 09/29/08) Objective Last 24 Hour Vital Signs Date Time Temp Pulse Resp B/P (MAP) Pulse Ox O2 Delivery O2 Flow Rate FiO2 04/08/17 13:57 81 18 97 Room Air 21 04/08/17 13:52 80 18 93 Room Air 21 04/08/17 12:00 97.2 79 20 137/77 94 97.2 Height (Feet): 6 Height (Inches): 1.00 Weight (Pounds): 259 General Appearance: no apparent distress, alert, confused Ayad Adhikari M.D. Apr 09, 2017 10:55
--- NOTE | 2017-04-10 09:01 | Discharge Summary ---
Discharge Summary Hospital Course Date of Admission Apr 03, 2017 at 03:49 Date of Discharge Apr 08, 2017 at 14:59 Admitting Diagnosis HPI Raffi White is a 66 year old male who was admitted on Apr 03, 2017 at 03:49 for Chronic Obstructive Pulmonary Disease Exacerbation Hospital Course dc summary #[id number] Discharge Medications New Medications: Levofloxacin* (Levaquin*) 500 Mg Tablet 500 MG ORAL DAILY for 3 Days, TAB Prednisone* (Prednisone*) 20 Mg Tablet 40 MG ORAL DAILY for 30 Days, TAB Risperidone* (Risperdal*) 2 Mg Tablet 4 MG ORAL BEDTIME for 30 Days, TAB Continued Medications: Clozapine (Clozapine) 25 Mg Tablet 75 MG PO QHS, TAB Divalproex Sodium (Depakote) 500 Mg Tablet.dr 1000 MG PO QHS, TAB Duloxetine Hcl* (Cymbalta*) 30 Mg Capsule.dr 30 MG ORAL DAILY, CAP Famotidine (Pepcid) 20 Mg Tablet 20 MG ORAL ACBREAKFAST, #7 TAB 0 Refills Discharge Condition Upon Discharge: stable Discharge Disposition Patient was discharged to SNF/Subacute Facility(03) Discharge Diagnoses: Garry (Araceli)Bernice NP Apr 10, 2017 09:01
--- NOTE | 2017-04-11 01:30 | Discharge Summary 2 SIG ---
DATE OF ADMISSION: 04/03/2017 DATE OF DISCHARGE: 04/08/2017 REASON FOR ADMISSION: 66-year-old male with history of COPD, hypertension, hypercholesteremia, diabetes, schizophrenia, spinal stenosis, initially presented to [facility] for acute dyspnea. The patient required placement on BiPAP and treatment with bronchodilator. The patient was diagnosed with acute COPD exacerbation and transferred for further management to [facility]. HOSPITAL COURSE: The patient admitted. The patient initially was on telemetry floor. Supplemental oxygen, pulmonary toilet provided as needed. Supplemental oxygen titrated to keep pulse oximetry above 92%. Pulmonary toilet via handheld nebulizing with bronchodilator provided [id number] and as needed. The patient was started on IV steroids. Trial of theophylline was initiated. The patient was started on empiric antibiotics. Unable to collect sputum culture since cough was nonproductive. Chest x-ray revealed borderline cardiomegaly, but no acute cardiopulmonary process otherwise. Echocardiogram revealed preserved ejection fracture of 65% to 70%. No evidence of left ventricular hypertrophy. No evidence of pericardial effusion. Right ventricular systolic pressure of 40 consistent with mild pulmonary hypertension. Antitussive provided as needed. Nicotine patch was added to existing regimen. The patient was counseled on smoking cessation. Patient was able to be weaned from BiPAP. BiPAP was provided at nighttime and was on standby as needed. DVT and GI prophylaxes provided. The patient initially was given one liter of normal saline due to hyponatremia. Magnesium was replaced. Initial sodium -127, last sodium - 133. Shop Tech closely followed. Shop Tech stated that the patient had hypovolemic hyponatremia and recommended free water restriction and mix all IV piggybacks with normal saline. Electrolytes were closely monitored and corrected further as needed as per manager embalmer funeral director. Nephrotoxics were avoided along with nonsteroid anti-inflammatory drugs. Pain management provided. Physical therapist closely worked with the patient. Craft Recruiter closely followed. Echocardiogram was stable. Lipid panel stable. Blood pressure was managed with ARB. Blood sugar was managed with sliding scale of insulin. Hemoglobin A1c- 7.0, at goal. Psychiatrist had seen and evaluated the patient, and diagnosed the patient with encephalopathy, dementia, and agitation. Psychiatric medication regimen was optimized. The patient stabilized and was ready for discharge to intermediate facility. FINAL DIAGNOSES: 1. Respiratory failure. 2. Acute COPD exacerbation. 3. Tobacco dependence with withdrawal. 4. Obstructive sleep apnea. 5. Isovolemic hyponatremia. 6. Diabetes mellitus. 7. Hypertension. 8. Schizophrenia. 9. Spinal stenosis. 10. Morbid obesity. 11. Dyslipidemia. 12. Encephalopathy. 13. Dementia. DISCHARGE MEDICATIONS: See medication reconciliation list. DISCHARGE INSTRUCTIONS: The patient discharged to intermediate facility. FOLLOWUP: Follow up with medical doctor at the facility. Jamil Plascencia M.D. Bernice Castañeda ([facility]: Sana JOB#: [id number] CC: KARYNA
== END 2017-04-08 14:59 | DRG 190 ==
LOC: 2E 03:49 → 4E 04-04 02:06
DX: J44.1 Chronic obstructive pulmonary disease with (acute) exacerbation (principal); J96.90 Respiratory failure, unspecified, unspecified whether with hypoxia or hypercapnia; G93.40 Encephalopathy, unspecified; E87.1 Hypo-osmolality and hyponatremia; F17.203 Nicotine dependence unspecified, with withdrawal; I10 Essential (primary) hypertension; E83.42 Hypomagnesemia; E11.9 Type 2 diabetes mellitus without complications; F20.9 Schizophrenia, unspecified; M48.00 Spinal stenosis, site unspecified; E78.5 Hyperlipidemia, unspecified; E66.01 Morbid (severe) obesity due to excess calories; G47.33 Obstructive sleep apnea (adult) (pediatric); K59.00 Constipation, unspecified; F03.90 Unspecified dementia, unspecified severity, without behavioral disturbance, psychotic disturbance, mood disturbance, and anxiety; R45.1 Restlessness and agitation
CPT/HCPCS: 36415; 71045; 80048; 80053; 80061; 82043; 82044; 82570; 82962; 83036; 83735; 84100; 84300; 85007; 85025; 85651; 89050; 93306; 94640; 94660; 94664; 94760; J1815; J7620